=== PATIENT | male | born 1985 | race Caucasian/White ===

== ENCOUNTER 2017-05-02 20:23 | Inpatient (IN) | payer OTHER ==
--- NOTE | 2017-05-02 20:45 | ED ---
Psych HPI - General Source: patient Mode of arrival: EMS <Maurice Carias - Last Filed: 05/02/17 20:42> <Todd Mckeon - Last Filed: 05/02/17 23:32> - General Chief Complaint: Psychiatric Symptoms Stated Complaint: mental health Time Seen by Provider: 05/02/17 20:35 - History of Present Illness Initial Comments: This 31-year-old white male presents with a complaint of depression. He states that he has had multiple life stressors recently. He went through a separation and then was having chcf problems regarding this 3-year-old. He also was fired from his job. He denies any suicidal ideations. He states that he was started on an SSRI type of medication and he thinks that this caused most of his symptoms. He's been having some auditory hallucinations but no visual hallucinations. He states that there is a poison his brain that is telling him to do the opposite of what he wants to do. He states that over symptoms started her on January 2017 knees been hospitalized multiple times since then primarily in [place]. He has never been to our hospital previously. He denies any medical issues currently. He denies any drugs or alcohol other than marijuana. No other complaints or modifying factors. (Maurice Carias) Review of Systems ROS Other: All systems not noted in ROS Statement are negative. <Maurice Carias - Last Filed: 05/02/17 20:42> ROS Other: All systems not noted in ROS Statement are negative. <Todd Mckeon - Last Filed: 05/02/17 23:32> ROS Statement: Those systems with pertinent positive or pertinent negative responses have been documented in the HPI. Past Medical History Past Medical History: Seizure Disorder Additional Past Medical History / Comment(s): seizures from medication History of Any Multi-Drug Resistant Organisms: None Reported Past Surgical History: No Surgical Hx Reported Past Psychological History: Anxiety, Depression Smoking Status: Current every day smoker Past Alcohol Use History: Occasional Past Drug Use History: Marijuana <Maurice Carias - Last Filed: 05/02/17 20:42> General Exam <Maurice Carias - Last Filed: 05/02/17 20:42> <Todd Mckeon - Last Filed: 05/02/17 23:32> - General Exam Comments Initial Comments: GENERAL: The patient is well nourished and well hydrated. VITAL SIGNS: Heart rate, blood pressure, respiratory rate reviewed as recorded in nurse's notes. EYES: Pupils are round and reactive. Extraocular movements are intact. No conjunctival / lid redness or swelling. ENT: No external evidence of injury, swelling, or ecchymosis. Airway is patent. Throat is clear. NECK: Nontender. No swelling or evidence of injury. No subcutaneous emphysema. Trachea is midline. No thyroid mass. HEART: Regular rate and rhythm. Good peripheral pulses. LUNGS/CHEST: Breath sounds clear and equal bilaterally. No rales, rhonchi, or wheezes. No ecchymosis, subcutaneous emphysema, or tenderness. ABDOMEN: Abdomen soft without tenderness. No palpable masses or organomegaly. No peritoneal signs. No abdominal wall swelling or ecchymosis. EXTREMITIES: No extremity tenderness. Normal muscle tone and function. No thoracolumbar tenderness. NEUROLOGIC: Sensation is grossly intact. Cranial nerve exam reveals face is symmetrical, tongue is midline, speech is clear. SKIN: No abrasions or ecchymosis is noted. No induration or masses noted. PSYCHIATRIC: Alert and oriented. Appears very tearful at times but is quite verbose. (Maurice Carias) Medical Decision Making <Maurice Carias - Last Filed: 05/02/17 20:42> <Todd Mckeon - Last Filed: 05/02/17 23:32> - Medical Decision Making The patient was seen and examined. A urine drug test is ordered. The breath alcohol test is negative. It is felt as though he is cleared from a medical standpoint for further psychiatric evaluation. (Maurice Carias) Patient reevaluated by myself, Dr. Mckeon. Patient does admit to being depressed however denies suicidal ideation. Petition has concerns for suicidal threats and attempt. Patient admits to not taking his medication. 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 Patient then admits that he has been in and out of hospitals multiple times recently and none of the medications seemed to help him. Patient does admit to hearing voices and states that is a female voice that is the voice of doubt telling him that he is frequently doing things wrong. Patient was seen by mental health services, who will admit. Positive clinical certificate completed. (Todd Mckeon) - Lab Data Lab Results 05/02/17 Range/Units 20:45 Urine Opiates Screen Not Detected (NotDetected) Ur Oxycodone Screen Not Detected (NotDetected) Urine Methadone Screen Not Detected (NotDetected) Ur Propoxyphene Screen Not Detected (NotDetected) Ur Barbiturates Screen Not Detected (NotDetected) U Tricyclic Antidepress Not Detected (NotDetected) Ur Phencyclidine Scrn Not Detected (NotDetected) Ur Amphetamines Screen Not Detected (NotDetected) U Methamphetamines Scrn Not Detected (NotDetected) U Benzodiazepines Scrn Not Detected (NotDetected) Urine Cocaine Screen Not Detected (NotDetected) U Marijuana (THC) Screen Detected H (NotDetected) Disposition <Maurice Carias - Last Filed: 05/02/17 20:42> Decision Time: 23:32 <Todd Mckeon - Last Filed: 05/02/17 23:32> Clinical Impression: Depression, Auditory hallucinations Disposition: ADMITTED IP TO THIS HOSP
[2017-05-02] MEDS ORDERED: NICOTINE 21MG/24HR PATCH TRANSDERM STA (21:12)
[2017-05-02] MEDS ORDERED: LORazepam 1 MG TAB PO PRN (23:38)
[2017-05-02] MEDS ORDERED: ZIPRASIDONE 20 MG VIAL IM PRN (23:38)
[2017-05-02] MEDS ORDERED: ACETAMINOPHEN TAB 325 MG TAB PO PRN (23:38)
[2017-05-02] MEDS ORDERED: MAG HYDROX/AL HYDROX/SIMETH 30 ML CUP PO PRN (23:38)
[2017-05-02] MEDS ORDERED: MAGNESIUM HYDROXIDE 2,400 MG/10 ML CUP PO PRN (23:38)
[2017-05-02] MEDS ORDERED: LORazepam 2 MG/ML SYRINGE IM PRN (23:45)
[2017-05-03 00:52] LABS: Appearance,Urine Clear (Clear); Bilirubin,Urine Negative (Negative); Glucose,Urine (UA) Negative (Negative); Ketones,Urine Negative (Negative); Leukocyte Esterase,Urine Negative (Negative); Nitrite,Urine Negative (Negative); Protein,Urine Negative (Negative); Specific Gravity,Urine 1.016 (1.001-1.035); UA Billing (MACRO vs. MICRO) CHEM; Urobilinogen,Urine <2.0 mg/dL (<2.0)
[2017-05-03 01:08] VITALS: BMI 27.6
--- NOTE | 2017-05-03 07:18 | P.MDCNMH ---
History of Present Illness H&P Date: 05/03/17 Chief Complaint: medical management 31 year old male with no significant past medical history , he has recently been ggoing through a divorce and has been fired from his job which has created alot of anxiety and depression. This has started January 2017 , for which he was hospitalized multiple times mainly in [place]. He is currently visiting here at [place] because he is visiting his sick mother. He is not sure why he is in the hospital now, and reports that police has brought him, and was told it was because he was becoming disturbing to others,. when further asked he denies any aggressive behaviors and reported that he was facetiming with his son over the phone [place] and did not go over any further details. He becomes tangential in his thoughts talking about social security benefits, employment benefits, and filing a law suit against doctors who started him on SSRI due to the side effects he experienced which made him stop the medication 6 weeks ago (he listed headache, ED, generalized weakness, insomnia, and hearing inner voices that is threatening to his family). He admits to suicidal thoughts but reports that he does not want to . He is currently concerned regarding some deadlines that he needs to electronically file some forms inorder to get his benefits. Review of Systems Constitutional: Patient reports no fever, no chills, no night sweating, no significant weight changes Eyes: Patient reports no visual changes, no eye pain ENT: Patient reports no ear pain, no rhinorrhea, no sore throat Cardiovascular: Patient reports no chest pain, no exertional dyspnea, no peripheral leg edema, no orthopnea, no paroxysmal nocturnal dyspnea Respiratory:Patient reports no cough, no wheezing, no shortness of breath Gastrointestinal: Patient reports no diarrhea, no constipation, no nausea no vomiting, no abdominal pain Genitourinary: Patient reports no dysuria, no hematuria, no changes in urinary habits, no genital lesions Musculoskeletal: Patient reports no muscle pain, no joint pain Psychiatric: Patient reports depression, suicidal ideation , hearing voices, anxiety Endocrine: Patient reports no heat intolerance, no cold intolerance, no excessive thirst, no polyuria Neurological: Patient reports no focal neurologic deficits, no weakness, no numbness, no tingling Hem/Lymphatic: Patient reports no bleeding tendency, no bruising, no swollen lymph glands Allergic/Immun: Patient reports no recent allergic reactions Skin: Patient reports no rashes, no pruritis, no ulcers Past Medical History Past Medical History: Seizure Disorder Additional Past Medical History / Comment(s): seizures from medication History of Any Multi-Drug Resistant Organisms: None Reported Past Surgical History: No Surgical Hx Reported Additional Past Surgical History / Comment(s): surgery when he was 4 years old removall of knee cap cyst Past Anesthesia/Blood Transfusion Reactions: Unable to Obtain Past Psychological History: Anxiety, Depression Smoking Status: Current every day smoker Past Alcohol Use History: Occasional Past Drug Use History: Marijuana - Past Family History Father Additional Family Medical History / Comment(s): CAD at age 60 Mother Additional Family Medical History / Comment(s): colon cancer Medications and Allergies Home Medications and Allergies Comment(s): none currently Home Medications Medication Instructions Recorded Confirmed Type No Known Home Medications [No 05/02/17 05/02/17 History Known Home Medications] Allergies Allergy/AdvReac Type Severity Reaction Status Date / Time ibuprofen Allergy Rash/Hives Verified 05/02/17 20:54 pseudoephedrine Allergy Rash/Hives Verified 05/02/17 20:54 [From Sudafed] alprazolam [From Xanax] AdvReac Confusion Verified 05/02/17 20:54 clonazepam [From Klonopin] AdvReac shaking Verified 05/02/17 20:54 escitalopram AdvReac seizures,insomnia, Verified 05/02/17 20:54 hallucinations Physical Exam Vitals: Vital Signs Temp Pulse Pulse Resp BP BP Pulse Ox 05/03/17 01:01 97.9 F 73 16 123/51 98 05/03/17 00:41 97.9 F 73 16 123/51 98 05/02/17 20:27 87 18 162/94 100 Intake and Output 05/02/17 05/03/17 05/03/17 22:59 06:59 14:59 Other: Weight 79.379 kg 82.4 kg Constitutional: No acute distress, conversant, pleasant Eyes: Anicteric sclerae, moist conjunctiva, no lid-lag Pupils equal round reactive to light ENMT: NC/AT Oropharynx clear, no erythema, exudates Neck: Supple, FROM, no masses, or JVD No carotid bruits No thyromegaly Lungs: Clear to auscultation Clear to percussion Normal respiratory effort, no accessory muscle use Cardiovascular: Heart regular in rate and rhythm, No murmurs, gallops, or rubs No peripheral edema Abdominal: Soft Nontender, no guarding, rebound or rigidity Abdomen moving with respiration Normoactive bowel sounds No hepatomegaly, No splenomegaly No palpable mass No abdominal wall hernia noted Skin: Normal temperature, tone, texture, turgor No induration No subcutaneous nodules No rash, lesions No ulcers Extremities: No digital cyanosis No clubbing Pedal pulses intact and symmetrical Radial pulses intact and symmetrical No calf tenderness Psychiatric: Alert and oriented to person, place and time Flat affect Poor judgement Neuro Muscles Strength 5/5 in all 4 extremities Sensation to light touch grossly present throughout No focal sensory deficits Lymphatics: no palpable cervical or supraclavicular , or inguinal lymph nodes Cranial Nerve Examination - Cranial Nerves Cranial Nerve II- Optic: Intact Cranial Nerve III- Oculomotor: Intact Cranial Nerve IV- Trochlear: Intact Cranial Nerve V- Trigeminal: Intact Cranial Nerve - Abducens: Intact Cranial Nerve VII- Facial: Intact Cranial Nerve VIII- Auditory: Intact Cranial Nerve IX- Glossopharyngeal: Intact Cranial Nerve X- Vagus: Intact Cranial Nerve XI- Accessory: Intact Cranial Nerve XII- Hypoglossal: Intact Results Labs: Abnormal Lab Results - Last 24 Hours (Table) 05/02/17 Range/Units 20:45 U Marijuana (THC) Screen Detected H (NotDetected) Assessment and Plan (1) Tobacco dependence Status: Acute (2) Auditory hallucinations Status: Acute (3) Depression Status: Acute Plan: patient counseled to quit smoking NRT offered depression and suicidal ideation management will be deferred to psych DVT PPX ambulatory and low risk
[2017-05-03 08:08] LABS: Basophils # (A) 0.1 k/uL (0-0.2); Basophils % (A) 1 %; CH 31.3; CHCM 34.5; Eosinophils # (A) 0.6 k/uL (0-0.7); Eosinophils % (A) 6 %; HCT 47.1 % (39.0-53.0); HDW 2.43; HGB 16.2 gm/dL (13.0-17.5); Luc # (Auto) 0.29; Luc % (Auto) 3; Lymphocytes # (A) 4.1 k/uL (1.0-4.8); Lymphocytes % (A) 42 %; MCH 31.3 pg (25.0-35.0); MCHC 34.4 g/dL (31.0-37.0); MCV 91.1 fL (80.0-100.0); Mean Platelet Volume 6.7; Monocytes # (A) 0.6 k/uL (0-1.0); Monocytes % (A) 6 %; Neutrophils # (A) 4.1 k/uL (1.3-7.7); Neutrophils % (A) 42 %; RBC 5.17 m/uL (4.30-5.90); WBC 9.7 k/uL (3.8-10.6); WBC (Perox) 9.36
[2017-05-03 08:26] LABS: ALT 53 U/L (21-72); AST 29 U/L (17-59); Alkaline Phosphatase 89 U/L (38-126); Anion Gap 11 mmol/L; Blood Urea Nitrogen 14 mg/dL (9-20); Calcium 9.7 mg/dL (8.4-10.2); Carbon Dioxide 23 mmol/L (22-30); Chloride 106 mmol/L (98-107); Glucose 87 mg/dL (74-99); Non-African American GFR(MDRD) >60 (>60 ml/min/1.73 sqM); Potassium 4.2 mmol/L (3.5-5.1); Sodium 140 mmol/L (137-145); Total Bilirubin 0.7 mg/dL (0.2-1.3); Total Protein 7.2 g/dL (6.3-8.2)
[2017-05-03] MEDS: NICOTINE 21MG/24HR PATCH TRANSDERM SCH (08:41)
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
[2017-05-03] MEDS ORDERED: WATER FOR INJECTION, STERILE 10 ML IV ONE (13:16)
[2017-05-03] MEDS ORDERED: ZIPRASIDONE 20 MG VIAL IM ONE (13:17)
[2017-05-04] MEDS: NICOTINE 21MG/24HR PATCH TRANSDERM SCH (08:07)
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
[2017-05-05 06:35] VITALS: BP 95/51; PULSE 67; RESP 16; TEMP 97.7
[2017-05-05] MEDS: NICOTINE 21MG/24HR PATCH TRANSDERM SCH (08:11)
== END 2017-05-05 14:45 | disposition home or self-care (01) | DRG 885 ==
LOC: EC 20:23 → 3MHU 23:21
PROVIDERS: ADMIT Psychiatry & Neurology Psychiatry; ATTEND Psychiatry & Neurology Psychiatry
DX: F31.2 Bipolar disorder, current episode manic severe with psychotic features (principal); F41.9 Anxiety disorder, unspecified; F41.0 Panic disorder [episodic paroxysmal anxiety]; F17.200 Nicotine dependence, unspecified, uncomplicated; F12.90 Cannabis use, unspecified, uncomplicated; Z88.6 Allergy status to analgesic agent; Z88.8 Allergy status to other drugs, medicaments and biological substances
CPT/HCPCS: 80053; 80306; 81003; 82075; 84443; 85025; 99285

== ENCOUNTER 2017-05-06 19:39 | Inpatient (IN) | payer OTHER ==
[2017-05-06] MEDS ORDERED: NICOTINE 21MG/24HR PATCH TRANSDERM STA (20:43)
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
[2017-05-07 01:25] LABS: Basophils # (A) 0.1 k/uL (0-0.2); Basophils % (A) 1 %; CH 32.5; Eosinophils # (A) 0.4 k/uL (0-0.7); Eosinophils % (A) 5 %; HCT 45.5 % (39.0-53.0); HDW 2.36; HGB 16.1 gm/dL (13.0-17.5); Luc # (Auto) 0.18; Luc % (Auto) 2; Lymphocytes % (A) 50 %; MCH 32.1 pg (25.0-35.0); MCHC 35.4 g/dL (31.0-37.0); MCV 90.6 fL (80.0-100.0); Mean Platelet Volume 7.6; Monocytes # (A) 0.5 k/uL (0-1.0); Monocytes % (A) 7 %; Neutrophils # (A) 2.8 k/uL (1.3-7.7); Neutrophils % (A) 35 %; RBC 5.02 m/uL (4.30-5.90); RDW 12.7 % (11.5-15.5); WBC 7.9 k/uL (3.8-10.6)
[2017-05-07 01:34] LABS: Anion Gap 10 mmol/L; Blood Urea Nitrogen 14 mg/dL (9-20); Calcium 9.4 mg/dL (8.4-10.2); Carbon Dioxide 23 mmol/L (22-30); Chloride 106 mmol/L (98-107); Glucose 79 mg/dL (74-99); Non-African American GFR(MDRD) >60 (>60 ml/min/1.73 sqM); Potassium 4.1 mmol/L (3.5-5.1); Sodium 139 mmol/L (137-145)
[2017-05-07] MEDS ORDERED: MAG HYDROX/AL HYDROX/SIMETH 30 ML CUP PO PRN (05:32)
[2017-05-07] MEDS ORDERED: ZIPRASIDONE 20 MG VIAL IM PRN (05:32)
[2017-05-07] MEDS ORDERED: MAGNESIUM HYDROXIDE 2,400 MG/10 ML CUP PO PRN (05:32)
[2017-05-07] MEDS ORDERED: ACETAMINOPHEN TAB 325 MG TAB PO PRN (05:32)
[2017-05-07 07:28] VITALS: BMI 27.9
[2017-05-07] MEDS: NICOTINE 14MG/24HR PATCH TRANSDERM SCH (08:11)
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
[2017-05-08] MEDS: NICOTINE 14MG/24HR PATCH TRANSDERM SCH (08:01)
--- NOTE | 2017-05-08 17:48 | P.HPMEDMHU ---
History of Present Illness H&P Date: 05/08/17 Chief Complaint: Suicidal ideation Patient is a 31-year-old male with past medical history of anxiety, depression, and an undescended left testicle who presented secondary to petition and certification for possible suicidal ideation. He has been refusing to take medications as he has had side effects from them as per psychiatry's notes. He is very irritable about being in the mental health unit. He has been very upset and concerned about his mother and her diagnosis of colon cancer. He states that he has been having intermittent left testicular pain since December. He reports that he has had a thorough evaluation including ultrasound and laboratory analysis. They have ruled out Chlamydia in the past. He is not concerned with this at this time. He also reports some right ear pain that is intermittent. It is associated with a runny nose. He denies any fevers, chills , or cough. He has no other complaints currently. He states that he has a chronic runny nose after having used cocaine. He reports being cocaine free for the last 4 years. Review of Systems General: no fever/chills, no rigors, no weight loss/weight gain, no change in appetite Eyes: No double vision, no unusual blurry vision, no loss of vision ENT: + rhinorrhea, No congestion, no trush, right ear pain Cardiovascular: No chest pain, no palpitations, no syncope, no edema, No paroxysmal nocturnal dyspnea, No dizziness Pulmonary: No shortness of breath, no wheezing, no cough, hemoptysis Abdominal: No abdominal pain, no constipation, no diarrhea, no vomiting, no nausea, no distention Genitourinary: No dysuria, no urinary frequency, no hematuria, no unusual discharge/odor, + intermittent left testicular pain Neuro: No unusual paresthesias, no unusual paresis/paralysis, no headache Dermatologic: No unusual rashes, no unusual lesions, no unusual changes in nails Endocrinology: No intolerance to heat/cold, no excessive thirst,] no unusual fatigue Hematologic: No unusual bruising or bleeding, no unusual cervical lymphadenopathy Psychiatric: No changes in mood or behaviors, no changes in sleep pattern Past Medical History Past Medical History: Seizure Disorder Additional Past Medical History / Comment(s): seizures from medication- patient reported this as last admission, he now states that he went to the ER to be evaluated for this and he told him he had no signs of seizures. 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 History of Any Multi-Drug Resistant Organisms: None Reported Additional Past Surgical History / Comment(s): surgery when he was 4 years old removall of knee cap cyst Past Anesthesia/Blood Transfusion Reactions: Unable to Obtain Past Psychological History: Anxiety, Depression Smoking Status: Current every day smoker Past Alcohol Use History: Occasional Past Drug Use History: Cocaine, Marijuana - Past Family History Father Additional Family Medical History / Comment(s): Valvular heart disease, diabetes mellitus type 2, and neuropathy Mother Additional Family Medical History / Comment(s): colon cancer Medications and Allergies Home Medications Medication Instructions Recorded Confirmed Type No Known Home Medications [No 05/02/17 05/07/17 History Known Home Medications] Allergies Allergy/AdvReac Type Severity Reaction Status Date / Time ibuprofen Allergy Rash/Hives Verified 05/07/17 05:54 pseudoephedrine Allergy Rash/Hives Verified 05/07/17 05:54 [From Sudafed] alprazolam [From Xanax] AdvReac Confusion Verified 05/07/17 05:54 clonazepam [From Klonopin] AdvReac shaking Verified 05/07/17 05:54 escitalopram AdvReac seizures,insomnia, Verified 05/07/17 05:54 hallucinations Physical Exam Osteopathic Statement: *. No significant issues noted on an osteopathic structural exam other than those noted in the History and Physical/Consult. Vitals: Vital Signs Temp Pulse Resp BP 05/08/17 07:00 97.9 F 71 18 132/75 General: non toxic, no distress, appears at stated age, normal weight Derm: no rashes, no lesions, no ulcers, no unusual ecchymoses Head: atraumatic, normocephalic, symmetric Eyes: EOMI, no lid lag, anicteric sclera, pupils equal round reactive to light ENT: + post nasal drip, no thrush , nearest patent, + pharyngeal erythema, bulging right tympanic membrane without erythema or loss of light. Neck: No thyromegaly, no cervical lymphadenopathy, trachea midline, supple Mouth: no lip lesion, mucus membranes moist Cardiovascular: S1S2 reg, no murmur, positive posterior tibial pulse bilateral, no edema , no JVD, no clubbing, no cyanosis, capillary refill less than 2 seconds Lungs: CTA bilateral, no rhonchi, no rales , no accessory muscle use Abdominal: soft, nontender to palpation, no guarding, no appreciable organomegaly, normal bowel sounds Ext: no gross muscle atrophy, no contractures, Neuro: CN II-XI grossly intact, light touch intact all 4 extremities, Psych: Alert, oriented, anxious Cranial Nerve Examination - Cranial Nerves Cranial Nerve II- Optic: Intact Cranial Nerve III- Oculomotor: Intact Cranial Nerve IV- Trochlear: Intact Cranial Nerve V- Trigeminal: Intact Cranial Nerve - Abducens: Intact Cranial Nerve VII- Facial: Intact Cranial Nerve VIII- Auditory: Intact Cranial Nerve IX- Glossopharyngeal: Intact Cranial Nerve X- Vagus: Intact Cranial Nerve XI- Accessory: Intact Cranial Nerve XII- Hypoglossal: Intact Results CBC & Chem 7: 05/07/17 01:16 05/07/17 01:16 Assessment and Plan Plan: #Acute rhinitis -Offered patient claritin and/or Flonase. He deferred per's to be a natural past day and drink tea when he goes home. There is no eminent danger or concerns for worsening of this condition. If left alone it should self resolve. #Left testicular pain -Continue to follow-up with urology as an outpatient if this recurs. He is at risk for testicular cancer with having an undescended testicle. Again this can be done on an outpatient basis. #Possible suicidal ideation -Your psych management # Tobacco abuse - cessation - nicotine replacement. Thank you for allowing us to participate in the care of this patient. We will follow peripherally. Do not hesitate to contact us with questions. Someone can be reached from the [facility] hospitalist group at all hours of the day at [phone].
--- NOTE | 2017-05-08 20:34 | P.PN ---
Subjective Principal diagnosis: Adjustment disorder with disturbance of emotions and conduct Patient reported that he is quite upset that someone was reportedly contacting regarding his inpatient hospitalization whom he had not signed a JEFFREY. After multiple discussions, patient was calmed and this was tabled until tomorrow when it could be discussed with patient when additional information could be gathered to help clarify the situation. Patient remains somewhat irascible on the unit at times but continues display no overt signs of eduar or psychosis. Patient denies any intent to harm self or others, he states today that he will consider signing for deferral of court hearing if a reasonable treatment plan can be reached. To date, patient patient has not emergency medication. Objective - Vital Signs Vital signs: Vital Signs Temp 97.9 F 05/08/17 07:00 Pulse 71 05/08/17 07:00 Resp 18 05/08/17 07:00 BP 132/75 05/08/17 07:00 Pulse Ox 100 05/07/17 07:21 - Labs CBC & Chem 7: 05/07/17 01:16 05/07/17 01:16 Assessment and Plan (1) Adjustment disorder with mixed disturbance of emotions and conduct Status: Acute Plan: 1. Additional collateral needed to develop disposition 2. Family meeting needed to establish safe discharge plan 3. Patient has signed JEFFREY's for multiple others for said collateral to be obtained 4. Continue hospitalization until a safe discharge plan can be established
[2017-05-09 06:57] VITALS: BP 114/58; PULSE 61; RESP 16; TEMP 97.6
[2017-05-09] MEDS ORDERED: NICOTINE 7MG/24HR PATCH TRANSDERM SCH (09:00)
== END 2017-05-09 18:24 | disposition home or self-care (01) | DRG 882 ==
LOC: EC 19:39 → 3MHU 05-07 05:17
PROVIDERS: ADMIT Psychiatry & Neurology Psychiatry; ATTEND Psychiatry & Neurology Psychiatry
DX: F43.25 Adjustment disorder with mixed disturbance of emotions and conduct (principal); R45.851 Suicidal ideations; G40.909 Epilepsy, unspecified, not intractable, without status epilepticus; F17.200 Nicotine dependence, unspecified, uncomplicated; F32.9 Major depressive disorder, single episode, unspecified; F41.9 Anxiety disorder, unspecified; F12.90 Cannabis use, unspecified, uncomplicated; Z88.6 Allergy status to analgesic agent; Z88.8 Allergy status to other drugs, medicaments and biological substances; Z82.49 Family history of ischemic heart disease and other diseases of the circulatory system
CPT/HCPCS: 36415; 80048; 80306; 82075; 85025; 99285

== ENCOUNTER 2017-08-15 12:40 | Emergency (ER) | payer SELFPAY ==
[2017-08-15] MEDS ORDERED: DIPH,PERTUS(ACELL)TETVAC-LF 0.5 ML VIAL IM ONE (12:56)
--- NOTE | 2017-08-16 07:20 | XR ---
EXAMINATION TYPE: TEMPORARY DATE OF EXAM: 08/15/2017 COMPARISON: NONE HISTORY: Chainsaw injury with pain and laceration TECHNIQUE: Two views are submitted. FINDINGS: The osseous structures are intact. The joint spaces are preserved and there is no acute fracture or dislocation. Soft tissue laceration noted. No metallic foreign body. Olecranon spur noted. IMPRESSION: 1. No definite acute fracture or dislocation if symptoms persist, follow-up study in 7 to 10 days wo uld be suggested. 2. Soft tissue injury with laceration.
== END 2017-08-15 14:42 | disposition home or self-care (01) ==
LOC: EC 12:40
DX: S51.812A Laceration without foreign body of left forearm, initial encounter (principal); F17.200 Nicotine dependence, unspecified, uncomplicated; W45.8XXA Other foreign body or object entering through skin, initial encounter; Y92.009 Unspecified place in unspecified non-institutional (private) residence as the place of occurrence of the external cause
CPT/HCPCS: 12002; 90715; 99283

== ENCOUNTER 2021-06-12 15:57 | Inpatient (IN) | payer OTHER ==
[2021-06-12 17:13] LABS: Appearance,Urine Clear (Clear); Bilirubin,Urine Negative (Negative); Blood,Urine Negative (Negative); Color,Urine Yellow; Glucose,Urine (UA) Negative (Negative); Ketones,Urine Negative (Negative); Leukocyte Esterase,Urine Negative (Negative); Nitrite,Urine Negative (Negative); Protein,Urine Negative (Negative); Specific Gravity,Urine 1.022 (1.001-1.035); Urobilinogen,Urine <2.0 mg/dL (<2.0)
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
[2021-06-12 17:34] LABS: Amphetamine Screen,Urine Not Detected (NotDetected); Barbiturate Screen,Urine Not Detected (NotDetected); Benzodiazepines Screen,Urine Not Detected (NotDetected); Cocaine Screen,Urine Not Detected (NotDetected); Methadone Screen, Urine Not Detected (NotDetected); Opiate Screen,Urine Not Detected (NotDetected); Oxycodone Screen, Urine Not Detected (NotDetected); Phencyclidine Screen,Urine Not Detected (NotDetected); Tricyclic Antidepressant,Urine Not Detected (NotDetected); Urn Cannabinoid Scrn Detected (NotDetected)
[2021-06-12] MEDS ORDERED: ACETAMINOPHEN TAB 325 MG TAB PO PRN (19:53)
[2021-06-12] MEDS ORDERED: MAG HYDROX/AL HYDROX/SIMETH 30 ML CUP PO PRN (19:53)
[2021-06-12] MEDS ORDERED: MAGNESIUM HYDROXIDE 2,400 MG/10 ML CUP PO PRN (19:53)
[2021-06-12] MEDS ORDERED: haloperidoL 5 MG TAB PO PRN (20:02)
[2021-06-12] MEDS ORDERED: HALOPERIDOL LACTATE 5 MG/ML 1 ML VIAL IM PRN (20:02)
[2021-06-12] MEDS ORDERED: hydrOXYzine pamoate 25 MG CAP PO PRN (20:02)
[2021-06-12] MEDS ORDERED: hydrOXYzine HCL 50 MG/ML 1 ML VIAL IM PRN (20:02)
--- NOTE | 2021-06-12 22:49 | P.PN ---
Progress Note - Text Progress Note Date: 06/12/21 Patient actively psychotic and could not be evaluated. Will attempt again tomorrow.
[2021-06-13 07:35] LABS: Basophils # (A) 0.1 k/uL (0-0.2); Basophils % (A) 1 %; Eosinophils # (A) 0.3 k/uL (0-0.7); Eosinophils % (A) 3 %; HCT 43.9 % (39.0-53.0); HGB 14.9 gm/dL (13.0-17.5); Lymphocytes # (A) 3.1 k/uL (1.0-4.8); Lymphocytes % (A) 41 %; MCH 32.1 pg (25.0-35.0); MCHC 33.9 g/dL (31.0-37.0); MCV 94.6 fL (80.0-100.0); Monocytes # (A) 0.5 k/uL (0-1.0); Monocytes % (A) 6 %; Neutrophils # (A) 3.5 k/uL (1.3-7.7); Neutrophils % (A) 45 %; Platelet Count 296 k/uL (150-450); RBC 4.65 m/uL (4.30-5.90); WBC 7.6 k/uL (3.8-10.6)
[2021-06-13 07:47] LABS: ALT 26 U/L (4-49); AST 29 U/L (17-59); African American GFR (CKD) >90 (>60 ml/min/1.73 sqM); Albumin 4.4 g/dL (3.5-5.0); Alkaline Phosphatase 77 U/L (38-126); Anion Gap 5 mmol/L; Blood Urea Nitrogen 16 mg/dL (9-20); Calcium 10.1 mg/dL (8.4-10.2); Carbon Dioxide 30 mmol/L (22-30); Chloride 104 mmol/L (98-107); Glucose 103 mg/dL (74-99); Non-African American GFR(CKD) >90 (>60 ml/min/1.73 sqM); Potassium 4.7 mmol/L (3.5-5.1); Sodium 139 mmol/L (137-145); Total Bilirubin 0.8 mg/dL (0.2-1.3); Total Protein 7.4 g/dL (6.3-8.2)
[2021-06-13] MEDS: NICOTINE 14MG/24HR PATCH TRANSDERM SCH (08:28)
[2021-06-13 12:03] LABS: Chol/HDL Ratio 4.44 Ratio; LDL Cholesterol,Calculated 149.5 mg/dL (0.0-131.0)
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
[2021-06-13] MEDS: haloperidoL 5 MG TAB PO SCH (20:35)
--- NOTE | 2021-06-13 22:08 | P.CONS ---
History of Present Illness - Reason for Consult Consult date: 06/13/21 - History of Present Illness Patient is a 35-year-old male with a PMH of marijuana abuse, tobacco abuse, who was brought into the emergency room under police custody due to erratic behavior. The patient was admitted with mental health unit where he was seen and evaluated. He continued to display paranoid behavior throughout the interview. He reported that he received 100s of threats yesterday via strange telephone numbers. He however denied any physical complaints. He denied being in any medications at home. He denied chest discomfort, shortness of breath, fever, chills. Also denied cough, nausea, vomiting, abdominal pain, diarrhea. He reports using recreational marijuana but denied using tobacco. D enied illicit substance use. Review of systems: Pertinent positives and negatives as discussed in HPI, a complete review of systems was performed and all other systems are negative. Physical examination: General: non toxic, no distress, appears at stated age, normal weight Derm: no unusual rashes/lesions no unusual ecchymoses, warm, dry Head: atraumatic, normocephalic, symmetric Eyes: EOMI, no lid lag, anicteric sclera, pupils equal round reactive to light ENT: Nose and ears atraumatic, no thrush, no pharyngeal erythema Neck: No thyromegaly, no cervical lymphadenopathy, trachea midline, supple Mouth: no lip lesion, mucus membranes moist Cardiovascular: S1S2 reg, no murmur, positive posterior tibial pulse bilateral, no edema, capillary refill less than 2 seconds Lungs: CTA bilateral, no rhonchi, no rales , no accessory muscle use Abdominal: soft, nontender to palpation, no guarding, no appreciable organomegaly, normal bowel sounds Ext: no gross muscle atrophy, muscle strength 5 out of 5 in all 4 extremities grossly, no contractures, Neuro: CN II-XI grossly intact, light touch intact all 4 extremities, finger to nose within normal limits, Psych: Alert, oriented, appropriate affect Assessment/plan Marijuana abuse -Advised on importance of cessation Psychosis -As per psychiatry Thank you for allowing us to participate in the care of this patient. We will follow peripherally. Do not hesitate to contact us with questions. Someone can be reached from the [facility] hospitalist group at all hours of the day at [phone]. Past Medical History Past Medical History: Seizure Disorder Additional Past Medical History / Comment(s): seizures from medication- patient reported this as last admission, he now states that he went to the ER to be evaluated for this and he told him he had no signs of seizures. 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 History of Any Multi-Drug Resistant Organisms: None Reported Past Surgical History: No Surgical Hx Reported Additional Past Surgical History / Comment(s): surgery when he was 4 years old removall of knee cap cyst Past Anesthesia/Blood Transfusion Reactions: Unable to Obtain Past Psychological History: Anxiety, Depression Smoking Status: Light tobacco smoker Past Alcohol Use History: Occasional Past Drug Use History: Cocaine, Marijuana - Past Family History Father Additional Family Medical History / Comment(s): Valvular heart disease, diabetes mellitus type 2, and neuropathy Mother Additional Family Medical History / Comment(s): colon cancer Medications and Allergies Home Medications Medication Instructions Recorded Confirmed Type No Known Home Medications 06/12/21 06/12/21 History Allergies Allergy/AdvReac Type Severity Reaction Status Date / Time ibuprofen Allergy Rash/Hives Verified 06/12/21 17:19 pseudoephedrine Allergy Rash/Hives Verified 06/12/21 17:19 [From Sudafed] alprazolam [From Xanax] AdvReac Confusion Verified 06/12/21 17:19 clonazepam [From Klonopin] AdvReac shaking Verified 06/12/21 17:19 escitalopram AdvReac seizures,insomnia, Verified 06/12/21 17:19 hallucinations Physical Exam Vitals: Vital Signs Temp Pulse Resp BP 06/13/21 05:50 97.9 F 52 L 14 100/56 Results CBC & Chem 7: 06/13/21 07:05 06/13/21 07:05 Labs: Abnormal Lab Results - Last 24 Hours (Table) 06/13/21 Range/Units 07:05 Glucose 103 H (74-99) mg/dL Cholesterol 227.00 H (0.00-200.00) mg/dL LDL Cholesterol, Calc 149.5 H (0.0-131.0) mg/dL
[2021-06-14] MEDS: NICOTINE 14MG/24HR PATCH TRANSDERM SCH (07:54)
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
[2021-06-14] MEDS: haloperidoL 5 MG TAB PO SCH (20:55)
[2021-06-15] MEDS ORDERED: haloperidoL 1 MG TAB PO SCH (09:00)
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
[2021-06-15] MEDS: haloperidoL 5 MG TAB PO SCH (21:59)
[2021-06-16] MEDS: haloperidoL 5 MG TAB PO SCH ×2 (09:16→21:14)
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
[2021-06-17] MEDS: haloperidoL 5 MG TAB PO SCH ×2 (08:34→20:21)
--- NOTE | 2021-06-17 17:53 | PN ---
PROGRESS NOTE DATE OF SERVICE: 06/17/2021. CHIEF COMPLAINT: The patient was brought to the hospital under petition by police. He has apparently had long-term issues with psychosis and persistent delusions. INTERVAL HISTORY: Patient has been in the same state of mind and mood. He had a quiet day yesterday. He comes out on the unit. He attended all groups yesterday. It is noted in one group he acknowledged that he has not been very productive of late in his life. He noted that he used to work excessively, and now mostly what he does is smoke cigarettes and does very little. He has poor motivation. He slept fairly well last night. Today he has been up. He has attended most of the groups today. He seemed to be a little withdrawn in the groups compared to yesterday. He had no complaints or concerns when I talked to him. When we when we first met he immediately said that he is in communication with his trade mark attorney and anticipates having a formal meeting either Friday at the earliest or Friday and that he will base any or all of his treatment decision issues on that connection. He is very much opposed to the idea of taking any medications at all. He denied any significant problems or concerns. MENTAL STATUS EXAM: Patient was somewhat restless. He gave fair eye contact. He answered some questions appropriately though tended to defer and would come back to the issue of not needing to address specific treatment issues, as he is waiting to hear from his court-appointed trade mark attorney. His affect was somewhat intense, his mood dysphoric. He seemed somewhat distressed. It was difficult to assess for thought disorder, as he did not really engage much in a conversation to be able to assess that. He indicated no thoughts of harm. He was oriented to his circumstances and surroundings. ASSESSMENT: I will continue the current diagnosis and treatment plan. I will continue the patient on all psychotropic medications based on his choice and relating to his current status from his petition. We will be anticipating either his making a decision in regard to a deferral or a court hearing. We will focus on stabilization and discharge planning. YESSI / BHAVANI: [id number] /
[2021-06-18] MEDS: haloperidoL 5 MG TAB PO SCH ×2 (08:38→20:25)
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
[2021-06-19] MEDS: haloperidoL 5 MG TAB PO SCH ×2 (08:04→23:57)
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
[2021-06-20] MEDS: haloperidoL 5 MG TAB PO SCH ×2 (08:48→20:46)
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
[2021-06-21] MEDS: haloperidoL 5 MG TAB PO SCH ×2 (08:15→21:07)
--- NOTE | 2021-06-21 10:29 | P.PN ---
Progress Note - Text Progress Note Date: 06/21/21 Interval History: Patient was seen in his room and was agreeable to speak with the telegraphic typewriter operator. The patient continues to maintain that the police have been messing with him and accusing him of things that they themselves have done and not him. He continues to be very paranoid towards them. He is currently not reporting any suicidal or homicidal ideation, intention, and/or plan. He is not bringing any auditory visual hallucinations. He is denying any paranoia or other delusions. The patient understands that he has court scheduled on July 02 and is currently requesting to see his press operator apprentice so that he may have his press operator apprentice obtain police records. He is otherwise not reporting any issues regarding his sleep or his appetite. He continues to refuse medications. Mental Status Exam: General Appearance: Patient appears to be stated age is alert, directable and cooperative today. Good hygiene and grooming with long dreadlocked hair. Behavior: Patient displays slightly elevated psychomotor activity. Eye contact is appropriate. Speech: Patient's speech is rapid but with normal volume. Mood/Affect: Patient's mood is "I'm fine." Affect with normal range but suspicious. Suicidality/Homicidality: The patient denies any suicidal or homicidal ideation, intention, and/or plan. Perceptions: The patient denies any overt auditory or visual hallucinations. Though content/process: Patient is endorsing paranoid and bizarre delusions. Thought process is linear but illogical. Memory and concentration: AOX3, grossly intact for the purposes of this session. Concentration is grossly intact. Judgment and insight: Very poor. Vital Signs Temp 97.7 F 06/21/21 06:19 Pulse 58 L 06/21/21 06:19 Resp 14 06/21/21 06:19 BP 116/66 06/21/21 06:19 Pulse Ox 99 06/12/21 20:20 Assessment Schizoaffective disorder, bipolar type Cannabis use disorder Plan: -Patient continues to meet criteria for inpatient psychiatric admission for symptom stabilization and safety. Patient has been petitioned and certified. Demand for court has been filed. -Medications: Continue Haldol 5 mg twice daily. Plan is to transition the patient to Haldol Decanoate. Patient has a right to refuse at this time. We will await a court order. -When necessary Ativan and Haldol for agitation/aggression. -NRT - nicotine patch -SW on board for discharge planning. Encouraged the patient to participate in milieu.
[2021-06-22] MEDS: haloperidoL 5 MG TAB PO SCH ×2 (08:46→20:27)
[2021-06-22 09:28] VITALS: BMI 25.2
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
[2021-06-23] MEDS: haloperidoL 5 MG TAB PO SCH ×2 (08:11→20:08)
--- NOTE | 2021-06-23 16:53 | PN ---
PROGRESS NOTE DATE OF SERVICE: 06/23/2021. CHIEF COMPLAINT: The patient was brought to the hospital under petition by police. He has apparently had long-term issues with psychosis and persistent delusions. INTERVAL HISTORY: The patient had a quiet day yesterday. He comes out on the unit. He will interact with others. He attends groups. It is noted that in one group where he was the only participant he talked about his history of dealing with legal issues and hospitalizations. He talked at length about persecution from police and doctors. He had some sexual preoccupation as well as confucianist preoccupation. He slept fairly well last night. Today he has been up. He continues doing the same. He made a number of statements about believing he has been persecuted. He has been to groups and has been appropriate. He continues to decline medications at this point and is focused on talking to his loss prevention agent in regard to the petition process. MENTAL STATUS EXAM: Patient was somewhat restless. He gave fair eye contact. He answered questions with brief responses. He was spontaneous and talked about issues with the court more than anything else. His affect was somewhat intense, his mood reserved. He seemed somewhat distressed. He continues to voice delusional thinking, particularly regarding paranoid thoughts. He voiced no thoughts of harm. He was oriented and alert. ASSESSMENT: I will continue the current diagnosis and treatment plan. Will continue to engage the patient in individual and group therapeutic activities. He is encouraged to consider taking medications, though that issue is on hold pending a court procedure. We will focus on stabilization and discharge planning. YESSI / BHAVANI: [id number] /
[2021-06-24] MEDS: haloperidoL 5 MG TAB PO SCH ×2 (08:10→21:05)
--- NOTE | 2021-06-24 12:31 | PN ---
PROGRESS NOTE DATE OF SERVICE: 06/24/2021. CHIEF COMPLAINT: The patient was brought to the hospital on a petition by police. He has apparently had long-term issues with psychosis and persistent delusions. INTERVAL HISTORY: Overall things continue the same for the patient. He comes out on the unit. He does interact with others. Generally he is out in the day areas quite a bit of the time. He seems to be fairly energetic. He goes to groups and is appropriate there. He continues to be focused on working with his claim attorney and addressing the petition issue. He said he slept well last night. Today he has been up and out. He reported no problems or concerns. He continues off psychotropic medications. MENTAL STATUS: Patient gave good eye contact. He was somewhat restless. He answered questions with brief responses. His thoughts were clear. His affect was in the reasonable range. He smiled some. His mood was quiet though not clearly down or depressed. He did not appear to be significantly distressed. Issues of thought disorder remain. He voiced no thoughts of harm. He is oriented and alert. ASSESSMENT: I will continue the current diagnosis and treatment plan. The primary focus in treatment at this point is addressing the court issues with the petition process. We will focus on stabilization and discharge planning. MMODL / IJN: [id number] /
[2021-06-25] MEDS: haloperidoL 5 MG TAB PO SCH ×2 (08:12→21:46)
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
[2021-06-26] MEDS: haloperidoL 5 MG TAB PO SCH (07:57)
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
--- NOTE | 2021-06-28 11:07 | P.PN ---
Progress Note - Text Progress Note Date: 06/28/21 Interval History: Patient was seen in group and was agreeable to speak with the mortgage loan underwriter in the office. The patient continues to report that he is not delusional and instead accuses this provider of being delusional for not believing him. He states that he has mountains of evidence to prove that he is not mentally ill and that the police have been framing him for crimes that they committed. He continues to refuse medications and states that he believes we are trying to place him on medications in order to get paid by "[employer]." He otherwise denies any suicidal or homicidal ideation, intention, and/or plan. He reports no auditory or visual hallucinations. Mental Status Exam: General Appearance: Patient appears to be stated age is alert, directable and cooperative today. Good hygiene and grooming with long dreadlocked hair. Behavior: Patient displays elevated psychomotor activity. Eye contact is intense. Speech: Patient's speech is pressured with increased rate, volume, and difficult to interrupt. Mood/Affect: Patient's mood is "I'm not delusional. You are." Affect is irritable and angry. Suicidality/Homicidality: The patient denies any suicidal or homicidal ideation, intention, and/or plan. Perceptions: The patient denies any overt auditory or visual hallucinations. Though content/process: Patient is endorsing paranoid and bizarre delusions. Thought process is linear but illogical. Memory and concentration: AOX3, grossly intact for the purposes of this session. Concentration is grossly intact. Judgment and insight: Very poor. Vital Signs Temp 97.7 F 06/28/21 06:43 Pulse 55 L 06/28/21 06:43 Resp 14 06/28/21 06:43 BP 104/64 06/28/21 06:43 Pulse Ox 95 06/22/21 05:56 Assessment Schizoaffective disorder, bipolar type Cannabis use disorder Plan: -Patient continues to meet criteria for inpatient psychiatric admission for symptom stabilization and safety. Patient has been petitioned and certified. Demand for court has been filed. He is scheduled for court 07/02/2021. -Medications: We will await a court order prior to restarting any antipsychotic medications. -When necessary Ativan and Haldol for agitation/aggression. -NRT - nicotine patch -SW on board for discharge planning. Encouraged the patient to participate in milieu.
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
--- NOTE | 2021-07-01 10:57 | P.PN ---
Progress Note - Text Progress Note Date: 07/01/21 Interval history: Patient was seen attending group and was directable and agreeable to speak with scenario writer. The patient reports no significant issues today. He reports he is preparing his paperwork and his statements for court tomorrow. He is otherwise not reporting any suicidal or homicidal ideation, intention, and/or plan. He reports no auditory or visual hallucinations. He continues to maintain his delusions of persecution by the police. He continues to refuse any medication at this time. Mental status exam: General Appearance: Patient appears to be stated age is alert, directable and cooperative today. Behavior: No agitated behavior today. Speech: Patient's speech is fluent and nonpressured. Mood/Affect: Mood is "okay." Affect is irritable. Suicidality/Homicidality: Patient denies having any suicidal or homicidal ideation intent or plan. Perceptions: Patient denies any auditory or visual hallucinations. Though content/process: Patient continues to be delusional. Memory and concentration: AOX3, grossly intact for the purposes of this session Judgment and insight: improving mildly Vital Signs Temp 98.1 F 07/01/21 06:44 Pulse 77 07/01/21 06:44 Resp 16 07/01/21 06:44 BP 126/68 07/01/21 06:44 Pulse Ox 99 06/29/21 05:20 Assessment/Plan: Continue with current diagnosis. Patient continues to meet criteria for inpatient psychiatric admission for symptom stabilization and safety. Awaiting court order for mental health treatment and medications. Patient is scheduled for court on Friday. Monitor for medication compliance and for any psychotropic medication side effects. Will continue to monitor ongoing response to treatment. Encouraged participation in milieu.
[2021-07-02] MEDS ORDERED: OLANZapine 10 MG VIAL IM PRN (14:36)
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
[2021-07-03] MEDS: risperiDONE 1 MG TAB PO SCH ×2 (11:39→21:47)
[2021-07-04] MEDS: risperiDONE 1 MG TAB PO SCH (08:04)
--- NOTE | 2021-07-04 11:16 | P.PN ---
Progress Note - Text Progress Note Date: 07/04/21 Interval History: Patient was seen in group and was agreeable to speak with the real estate underwriter. The p atient is now court ordered for medications. The patient continues to express that he is receiving medications that will be detrimental in his ability to function. He maintains that these medications will cause him to lose his memory, lose his ability to work, affect his relationship with his girlfriend, and ruin his life. He initially mentioned it was haldol that did this but is now stating risperdal is one of the medications that did this as well. He is otherwise not reporting any suicidal or homicidal ideation, intention, and/or plan. He reports no auditory or visual hallucinations. Mental Status Exam: General Appearance: Patient appears to be stated age is alert, directable and cooperative. Good hygiene and grooming with long dreadlocked hair. Behavior: Patient displays elevated psychomotor activity. Eye contact is intense. Speech: Patient's speech is pressured with increased rate, volume, and difficult to interrupt. Mood/Affect: Patient's mood is "Scared for my life." Affect is anxious. Suicidality/Homicidality: The patient denies any suicidal or homicidal ideation, intention, and/or plan. Perceptions: The patient denies any overt auditory or visual hallucinations. Though content/process: Patient is endorsing paranoid and bizarre delusions. Thought process is linear but illogical. Fixated on not receiving medications. Memory and concentration: AOX3, grossly intact for the purposes of this session. Concentration is grossly intact. Judgment and insight: Very poor. Vital Signs Temp 98.7 F 07/04/21 06:55 Pulse 73 07/04/21 06:55 Resp 16 07/04/21 06:55 BP 117/72 07/04/21 06:55 Pulse Ox 99 06/29/21 05:20 Assessment Schizoaffective disorder, bipolar type Cannabis use disorder Plan: -Patient continues to meet criteria for inpatient psychiatric admission for symptom stabilization and safety. -Patient is now court ordered for treatment. -Medications: Increase risperdal to 1mg in the morning and 2 mg at bedtime for schizoaffective disorder with plans to transition to invega sustenna or risperdal consta. As patient is under court order, if he refuses, administer Zyprexa 5 mg IM as needed. -When necessary Ativan and Haldol for agitation/aggression. -NRT - nicotine patch -SW on board for discharge planning. Encouraged the patient to participate in milieu.
[2021-07-04] MEDS ORDERED: risperiDONE 2 MG TAB PO SCH (21:00)
[2021-07-05] MEDS ORDERED: risperiDONE 1 MG TAB PO SCH (09:00)
--- NOTE | 2021-07-05 10:01 | P.PN ---
Progress Note - Text Progress Note Date: 07/05/21 Interval History: Patient was seen in group and was agreeable to speak with the insurance underwriter. The patient has been compliant with his medications but continues to maintain that medications were the reason for his deterioration in his ability to maintain his high paying job and his memory. 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 He refuses to acknowledge that his hospitalizations occur in the context of not having any medications in the first place. The patient is not reporting any suicidal or homicidal ideation, intention, and/or plan. He is not reporting any auditory or visual hallucinations. He continues to express concern that the medications may contribute to rectal dysfunction and weight gain. He is agreeable to switching medications to Abilify for a ignition specialist side effect profile. He continues to be hesitant on a long-acting injectable but understands that he is now court ordered and will receive it if ordered. Currently, the patient expressed that he is experiencing tinnitus. Mental Status Exam: General Appearance: Patient appears to be stated age is alert, directable and cooperative. Good hygiene and grooming with long dreadlocked hair. Behavior: Patient displays elevated psychomotor activity. Eye contact is intense. Speech: Patient's speech is nonpressured, spontaneous, and interruptible. Mood/Affect: Patient's mood is "a little irritable." Affect is anxious. Suicidality/Homicidality: The patient denies any suicidal or homicidal ideation, intention, and/or plan. Perceptions: The patient denies any overt auditory or visual hallucinations. Though content/process: Patient is endorsing paranoid and bizarre delusions. Thought process is linear but illogical. Fixated on not receiving medications. Memory and concentration: AOX3, grossly intact for the purposes of this session. Concentration is grossly intact. Judgment and insight: Very poor. Vital Signs Temp 98.7 F 07/04/21 06:55 Pulse 73 07/04/21 06:55 Resp 16 07/04/21 06:55 BP 117/72 07/04/21 06:55 Pulse Ox 99 06/29/21 05:20 Assessment Schizoaffective disorder, bipolar type Cannabis use disorder Plan: -Patient continues to meet criteria for inpatient psychiatric admission for symptom stabilization and safety. -Patient is now court ordered for treatment. -Medications: In light of side effect profile, we will discontinue Risperdal and start Abilify 15 mg at bedtime. We'll transition the patient to Abilify maintena prior to discharge. The patient refuses his oral Abilify he'll be administered Zyprexa 5 mg IM as he is now under court order. -SW on board for discharge planning. Encouraged the patient to participate in milieu.
[2021-07-05] MEDS: ARIPiprazole 15 MG TAB PO SCH (20:09)
--- NOTE | 2021-07-06 10:30 | P.PN ---
Progress Note - Text Progress Note Date: 07/06/21 Interval History: Patient was seen in group and was agreeable to speak with the insurance underwriter. The claribel quan presents to this insurance underwriter the copy of the side effects of abilify. He highlights concerns regaring decreased sweat, increased heat, and risk for overheating when on abilify during strenuous exercise. He maintains he likes to exercise frequently and expresses that he wants to highlight this to this provider. He also endorses numerous somatic complaints currently stating his gums are bleeding and that he is experiencing tinnitus. 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 Patient continues to hold the stance that medications are dangerous for him but is taking the medications as he is court ordered. Mental Status Exam: General Appearance: Patient appears to be stated age is alert, directable and cooperative. Good hygiene and grooming with long dreadlocked hair. Behavior: Patient displays elevated psychomotor activity. Eye contact is intense. Speech: Patient's speech is nonpressured, spontaneous, and interruptible. Mood/Affect: Patient's mood is "I'm scare of the medications." Affect is anxious. Suicidality/Homicidality: The patient denies any suicidal or homicidal ideation, intention, and/or plan. Perceptions: The patient denies any overt auditory or visual hallucinations. Though content/process: Patient is endorsing paranoid and bizarre delusions. Thought process is linear but illogical. Fixated on not receiving medications. Numerous somatic complaints today. Memory and concentration: AOX3, grossly intact for the purposes of this session. Concentration is grossly intact. Judgment and insight: Very poor. Vital Signs Temp 98.1 F 07/06/21 06:32 Pulse 75 07/06/21 06:32 Resp 15 07/06/21 06:32 BP 120/70 07/06/21 06:32 Pulse Ox 99 06/29/21 05:20 Intake & Output 07/05/21 07/06/21 07/06/21 18:59 06:59 18:59 Weight 75.5 kg Assessment Schizoaffective disorder, bipolar type Cannabis use disorder Plan: -Patient continues to meet criteria for inpatient psychiatric admission for symptom stabilization and safety. -Patient is now court ordered for treatment. -We will need to confirm whether the patient is under a retirement hold. -Medications: Continue Abilify 15 mg at bedtime with plans to increase to 20 mg over the weekend. The plan is to transition the patient to VERMA Abilify Maintena. The patient refuses his oral Abilify he'll be administered Zyprexa 5 mg IM as he is now under court order. -SW on board for discharge planning. Encouraged the patient to participate in milieu.
[2021-07-06] MEDS: ARIPiprazole 15 MG TAB PO SCH (20:20)
[2021-07-07 06:54] VITALS: RESP 18
--- NOTE | 2021-07-07 15:54 | PN ---
PROGRESS NOTE DATE OF SERVICE: 07/07/2021. CHIEF COMPLAINT: The patient was brought to the hospital under petition by police. He has apparently had long-term issues with psychosis and persistent delusions. INTERVAL HISTORY: The patient has been doing fairly well. He had a quiet day yesterday. He comes out on the unit. He interacts with others. He attended most of the groups yesterday and seemed to engage in a reasonable way in groups. He notes that the issues relating to the petition process are resolved. He has been accepting medications. He understands that part of the treatment plan would be to transition him to [facility]. He tolerates his psychotropic medications. MENTAL STATUS EXAMINATION: Patient was somewhat restless. He gave good eye contact. He answered questions appropriately. His thoughts were clear and coherent. His affect was in a reasonable range. He had a friendly manner. His mood was a little reserved though not clearly down or depressed. He did not appear to be distressed. It was difficult to assess for thought disorder. He voiced no thoughts of harm. Cognition was clear. ASSESSMENT: I will continue the current diagnosis and treatment plan. I will continue psychotropic medications the same. I will review treatment issues with the patient further in regard to transitioning to [facility]. I would anticipate the patient being discharged fairly soon. Will continue to focus on stabilization and discharge planning. YESSI / BHAVANI: [id number] /
[2021-07-08] MEDS ORDERED: ARIPiprazole IM 400 MG VIAL (NO COST) PHARMACY STOCK IM ONE (12:00)
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
[2021-07-09] MEDS ORDERED: ARIPiprazole 10 MG TAB PO SCH (21:00)
[2021-07-10 06:56] VITALS: BP 127/67; PULSE 78; TEMP 97.6
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
== END 2021-07-10 15:09 | DRG 885 ==
LOC: EC 15:57 → 3MHU 19:51
PROVIDERS: ADMIT Psychiatry & Neurology Psychiatry; ATTEND Psychiatry & Neurology Psychiatry
DX: F25.0 Schizoaffective disorder, bipolar type (principal); F17.210 Nicotine dependence, cigarettes, uncomplicated; F41.9 Anxiety disorder, unspecified; G40.909 Epilepsy, unspecified, not intractable, without status epilepticus; F12.10 Cannabis abuse, uncomplicated; H93.19 Tinnitus, unspecified ear; Z20.822 Contact with and (suspected) exposure to COVID-19; Z79.899 Other long term (current) drug therapy; Z80.0 Family history of malignant neoplasm of digestive organs; Z91.83 Wandering in diseases classified elsewhere; R45.1 Restlessness and agitation; Z56.0 Unemployment, unspecified; Z98.890 Other specified postprocedural states; Z65.3 Problems related to other legal circumstances; Z88.6 Allergy status to analgesic agent; Z88.8 Allergy status to other drugs, medicaments and biological substances; Z83.3 Family history of diabetes mellitus; Z82.0 Family history of epilepsy and other diseases of the nervous system
CPT/HCPCS: 80053; 80061; 80306; 81003; 82075; 83036; 84443; 85025; 87635; 99285

== ENCOUNTER 2022-06-11 16:14 | Emergency (ER) | payer BC, OTHER ==
[2022-06-11 16:24] VITALS: BP 114/73; PULSE 73; RESP 18; TEMP 98
--- NOTE | 2022-06-11 18:14 | ED ---
General Adult HPI - General Chief complaint: Headache Stated complaint: Headache,Teeth pain Time Seen by Provider: 06/11/22 16:28 Source: patient Mode of arrival: ambulatory Limitations: no limitations - History of Present Illness Initial comments: Patient is a 36-year-old male presenting with chief complaint of "flulike symptoms". Patient states that yesterday he started experiencing chills, body aches, headache, nasal congestion. Patient has not taken any medication at home for his symptoms. Denies any chest pain, difficulty breathing, abdominal pain, nausea, vomiting, neck pain or stiffness, vision or hearing changes, difficulty swallowing, dizziness, fever. - Related Data Previous Rx's Medication Instructions Recorded Hydrocortisone Cream 1 applic TOPICAL BID #1 cream 11/27/21 [Hydrocortisone 1% Cream] Ziprasidone [Geodon] 20 mg PO BID 30 Days cap 11/27/21 Allergies Allergy/AdvReac Type Severity Reaction Status Date / Time aripiprazole [From Abilify] Allergy Rash/Hives Verified 06/11/22 16:24 ibuprofen Allergy Rash/Hives Verified 06/11/22 16:24 pseudoephedrine Allergy Rash/Hives Verified 06/11/22 16:24 [From Sudafed] alprazolam [From Xanax] AdvReac Confusion Verified 06/11/22 16:24 clonazepam [From Klonopin] AdvReac shaking Verified 06/11/22 16:24 escitalopram AdvReac seizures,insomnia, Verified 06/11/22 16:24 hallucinations Review of Systems ROS Statement: Those systems with pertinent positive or pertinent negative responses have been documented in the HPI. ROS Other: All systems not noted in ROS Statement are negative. Past Medical History Past Medical History: Seizure Disorder Additional Past Medical History / Comment(s): seizures from medication- patient reported this as last admission, he now states that he went to the ER to be evaluated for this and he told him he had no signs of seizures. 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 History of Any Multi-Drug Resistant Organisms: None Reported Past Surgical History: No Surgical Hx Reported Additional Past Surgical History / Comment(s): surgery when he was 4 years old removall of knee cap cyst Past Anesthesia/Blood Transfusion Reactions: Unable to Obtain Past Psychological History: Anxiety, Depression Smoking Status: Former smoker Past Alcohol Use History: Occasional Past Drug Use History: Cocaine, Marijuana - Past Family History Father Additional Family Medical History / Comment(s): Valvular heart disease, diabetes mellitus type 2, and neuropathy Mother Additional Family Medical History / Comment(s): colon cancer General Exam Limitations: no limitations General appearance: alert, in no apparent distress Head exam: Present: atraumatic, normocephalic, normal inspection Eye exam: Present: normal appearance, PERRL, EOMI. Absent: scleral icterus, conjunctival injection, periorbital swelling Neck exam: Present: normal inspection, full ROM Respiratory exam: Present: normal lung sounds bilaterally. Absent: respiratory distress, wheezes, rales, rhonchi, stridor Cardiovascular Exam: Present: regular rate, normal rhythm, normal heart sounds. Absent: systolic murmur, diastolic murmur, rubs, gallop, clicks Neurological exam: Present: alert, oriented X3, CN II-XII intact Psychiatric exam: Present: normal affect, normal mood Skin exam: Present: warm, dry, intact, normal color. Absent: rash Course Vital Signs 06/11/22 16:21 Temperature 98 F Pulse Rate 73 Respiratory 18 Rate Blood Pressure 114/73 O2 Sat by Pulse 98 Oximetry Medical Decision Making - Medical Decision Making Patient is a 36-year-old male presenting with chief complaint of flulike symptoms. Minutes to headache, body aches, chills, congestion that started yesterday. Physical examination is unremarkable. Patient tested negative for Covid and influenza. Symptoms are likely viral in nature. Educated on supportive treatment. Follow-up with PCP. Report back to ER with any new or worsening symptoms. Discussed return parameters and answered all questions. Patient conveyed verbal understanding and agreed to the plan. I discussed this case in detail with my attending Dr. Pretty. - Lab Data Lab Results 06/11/22 06/11/22 Range/Units 17:06 17:06 Coronavirus (PCR) Not Detected (Not Detectd) Influenza Type A RNA Not Detected (Not Detectd) Influenza Type B (PCR) Not Detected (Not Detectd) Disposition Clinical Impression: Viral URI Disposition: HOME SELF-CARE Condition: Good Instructions (If sedation given, give patient instructions): Upper Respiratory Infection (ED), Viral Syndrome (ED) Additional Instructions: Follow-up with PCP. Report back to ER with any new or worsening symptoms. Drink plenty of fluids and get plenty of rest. Take Motrin and Tylenol as needed for pain or fever control. Is patient prescribed a controlled substance at d/c from ED?: No Referrals: None,Stated [Primary Care Provider] - 1-2 days Time of Disposition: 18:14
== END 2022-06-11 18:27 | disposition home or self-care (01) ==
LOC: EC 16:14
DX: J06.9 Acute upper respiratory infection, unspecified (principal); Z87.891 Personal history of nicotine dependence; Z20.822 Contact with and (suspected) exposure to COVID-19; Z88.6 Allergy status to analgesic agent; Z88.8 Allergy status to other drugs, medicaments and biological substances
CPT/HCPCS: 87502; 87635; 99284

== ENCOUNTER 2022-06-16 13:45 | Emergency (ER) | payer BC, OTHER ==
[2022-06-16 14:06] VITALS: BP 118/81; PULSE 77; RESP 20; TEMP 97.6
--- NOTE | 2022-06-16 16:20 | ED ---
General Adult HPI - General Chief complaint: Extremity Problem,Nontraumatic Stated complaint: Bilateral hand and foot pain Time Seen by Provider: 06/16/22 16:07 Source: patient, RN notes reviewed, old records reviewed Mode of arrival: ambulatory Limitations: no limitations - History of Present Illness Initial comments: 36-year-old well-appearing male presents ambulatory to the emergency room with complaints of bilateral hand pain. Patient states that his hands have shrunk in size overnight after doing multiple pull-ups yesterday. He states that they both ache. He also noticed that his feet have shrunk over the past year from a size 13 to a 10. He states he has been working out and eating better, denies any significant weight loss. Denies any other pain or discomfort. No nausea vomiting diarrhea or fevers. Patient does have a history of marijuana and cocaine abuse but denies any recent use stating he is on probation and is required to "drop" urine. Patient also has history of schizophrenia and seizure disorder. He is a nonsmoker -: days(s) (1) Location: left, right, upper extremity (hands) Severity scale (1-10): 3 Quality: aching Consistency: constant Improves with: none Worsens with: none Treatments Prior to Arrival: none - Related Data Previous Rx's Medication Instructions Recorded Hydrocortisone Cream 1 applic TOPICAL BID #1 cream 11/27/21 [Hydrocortisone 1% Cream] Ziprasidone [Geodon] 20 mg PO BID 30 Days cap 11/27/21 Allergies Allergy/AdvReac Type Severity Reaction Status Date / Time aripiprazole [From Abilify] Allergy Rash/Hives Verified 06/16/22 14:06 ibuprofen Allergy Rash/Hives Verified 06/16/22 14:06 pseudoephedrine Allergy Rash/Hives Verified 06/16/22 14:06 [From Sudafed] alprazolam [From Xanax] AdvReac Confusion Verified 06/16/22 14:06 clonazepam [From Klonopin] AdvReac shaking Verified 06/16/22 14:06 escitalopram AdvReac seizures,insomnia, Verified 06/16/22 14:06 hallucinations Review of Systems ROS Statement: Those systems with pertinent positive or pertinent negative responses have been documented in the HPI. ROS Other: All systems not noted in ROS Statement are negative. Past Medical History Past Medical History: Seizure Disorder Additional Past Medical History / Comment(s): seizures from medication- patient reported this as last admission, he now states that he went to the ER to be evaluated for this and he told him he had no signs of seizures. 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 History of Any Multi-Drug Resistant Organisms: None Reported Past Surgical History: No Surgical Hx Reported Additional Past Surgical History / Comment(s): surgery when he was 4 years old removall of knee cap cyst Past Anesthesia/Blood Transfusion Reactions: Unable to Obtain Past Psychological History: Anxiety, Depression Smoking Status: Former smoker Past Alcohol Use History: Occasional Past Drug Use History: Cocaine, Marijuana - Past Family History Father Additional Family Medical History / Comment(s): Valvular heart disease, diabetes mellitus type 2, and neuropathy Mother Additional Family Medical History / Comment(s): colon cancer General Exam Limitations: no limitations General appearance: alert, in no apparent distress Eye exam: Absent: scleral icterus, conjunctival injection, periorbital swelling ENT exam: Present: mucous membranes moist Neck exam: Present: normal inspection. Absent: tenderness, meningismus Respiratory exam: Present: normal lung sounds bilaterally. Absent: respiratory distress, wheezes, rales, rhonchi, stridor, chest wall tenderness, accessory muscle use Cardiovascular Exam: Present: regular rate Extremities exam: Present: full ROM, normal capillary refill. Absent: tenderness, pedal edema, calf tenderness Back exam: Present: full ROM. Absent: tenderness, CVA tenderness (R), CVA tenderness (L), rash noted Neurological exam: Present: alert, oriented X3, normal gait. Absent: abnormal gait, motor sensory deficit Psychiatric exam: Present: normal affect, normal mood. Absent: depressed, agitated, anxious, manic Skin exam: Present: warm, dry, normal color. Absent: cyanosis, diaphoretic, petechiae, pallor Course Vital Signs 06/16/22 14:04 Temperature 97.6 F Pulse Rate 77 Respiratory 20 Rate Blood Pressure 118/81 O2 Sat by Pulse 99 Oximetry Medical Decision Making - Medical Decision Making CBC and electrolytes are unremarkable. Patient has full range of motion and good strength of both hands. Capillary refill less than 2 seconds. No swelling noted to hands or feet. No other abnormalities noted. His hand pain may be related to the multiple pull-ups he did yesterday. He was directed to take Tylenol for pain. I do not have a reason for patient's concern that his hands are smaller overnight nor do I have a reason for why his feet have shrunk 3 sizes over the past year. He was instructed to follow-up with his primary care doctor as needed. He was given a work note as requested for today. Case discussed with Dr. Appiah. - Lab Data Result diagrams: 06/16/22 16:22 06/16/22 16:22 Lab Results 06/16/22 06/16/22 Range/Units 16:22 16:22 WBC 6.5 (3.8-10.6) k/uL RBC 5.06 (4.30-5.90) m/uL Hgb 15.3 (13.0-17.5) gm/dL Hct 43.0 (39.0-53.0) % MCV 85.1 (80.0-100.0) fL MCH 30.3 (25.0-35.0) pg MCHC 35.6 (31.0-37.0) g/dL RDW 11.6 (11.5-15.5) % Plt Count 267 (150-450) k/uL MPV 7.2 Neutrophils % 49 % Lymphocytes % 37 % Monocytes % 8 % Eosinophils % 3 % Basophils % 1 % Neutrophils # 3.2 (1.3-7.7) k/uL Lymphocytes # 2.4 (1.0-4.8) k/uL Monocytes # 0.5 (0-1.0) k/uL Eosinophils # 0.2 (0-0.7) k/uL Basophils # 0.1 (0-0.2) k/uL Sodium 139 (137-145) mmol/L Potassium 4.2 (3.5-5.1) mmol/L Chloride 102 (98-107) mmol/L Carbon Dioxide 28 (22-30) mmol/L Anion Gap 9 mmol/L BUN 15 (9-20) mg/dL Creatinine 0.68 (0.66-1.25) mg/dL Est GFR (CKD-EPI)AfAm >90 (>60 ml/min/1.73 sqM) Est GFR (CKD-EPI)NonAf >90 (>60 ml/min/1.73 sqM) Glucose 95 (74-99) mg/dL Calcium 9.3 (8.4-10.2) mg/dL Disposition Clinical Impression: Bilateral hand pain, Arthralgia Disposition: HOME SELF-CARE Condition: Good Instructions (If sedation given, give patient instructions): Arthralgia (ED) Additional Instructions: Use Tylenol for any pain or discomfort. Increase your fluid intake. Follow-up with the primary care doctor for continuation of care. Is patient prescribed a controlled substance at d/c from ED?: No Referrals: None,Stated [Primary Care Provider] - 1-2 days Time of Disposition: 16:48
[2022-06-16 16:32] LABS: Basophils # (A) 0.1 k/uL (0-0.2); Basophils % (A) 1 %; Eosinophils # (A) 0.2 k/uL (0-0.7); Eosinophils % (A) 3 %; HGB 15.3 gm/dL (13.0-17.5); Lymphocytes # (A) 2.4 k/uL (1.0-4.8); Lymphocytes % (A) 37 %; MCH 30.3 pg (25.0-35.0); MCHC 35.6 g/dL (31.0-37.0); MCV 85.1 fL (80.0-100.0); Mean Platelet Volume 7.2; Monocytes # (A) 0.5 k/uL (0-1.0); Monocytes % (A) 8 %; Neutrophils # (A) 3.2 k/uL (1.3-7.7); Neutrophils % (A) 49 %; Platelet Count 267 k/uL (150-450); RBC 5.06 m/uL (4.30-5.90); RDW 11.6 % (11.5-15.5); WBC 6.5 k/uL (3.8-10.6)
[2022-06-16 16:41] LABS: African American GFR (CKD) >90 (>60 ml/min/1.73 sqM); Anion Gap 9 mmol/L; Blood Urea Nitrogen 15 mg/dL (9-20); Calcium 9.3 mg/dL (8.4-10.2); Carbon Dioxide 28 mmol/L (22-30); Chloride 102 mmol/L (98-107); Glucose 95 mg/dL (74-99); Non-African American GFR(CKD) >90 (>60 ml/min/1.73 sqM); Potassium 4.2 mmol/L (3.5-5.1); Sodium 139 mmol/L (137-145)
[2022-06-16] MEDS ORDERED: ACETAMINOPHEN TAB 325 MG TAB PO STA (16:50)
== END 2022-06-16 17:10 | disposition home or self-care (01) ==
LOC: EC 13:45
DX: M79.642 Pain in left hand (principal); M79.641 Pain in right hand; M25.50 Pain in unspecified joint; F12.90 Cannabis use, unspecified, uncomplicated; Z87.891 Personal history of nicotine dependence; Z88.8 Allergy status to other drugs, medicaments and biological substances; Z88.6 Allergy status to analgesic agent; Z88.2 Allergy status to sulfonamides
CPT/HCPCS: 36415; 80048; 85025; 99283

== ENCOUNTER 2024-01-08 08:22 | Inpatient (IN) | payer BC, MEDICAID, OTHER ==
[2024-01-08 10:28] LABS: Amphetamine Screen,Urine Not Detected (NotDetected); Barbiturate Screen,Urine Not Detected (NotDetected); Benzodiazepines Screen,Urine Not Detected (NotDetected); Cocaine Screen,Urine Not Detected (NotDetected); Methadone Screen, Urine Not Detected (NotDetected); Opiate Screen,Urine Not Detected (NotDetected); Oxycodone Screen, Urine Not Detected (NotDetected); Phencyclidine Screen,Urine Not Detected (NotDetected); Tricyclic Antidepressant,Urine Not Detected (NotDetected); Urn Cannabinoid Scrn Detected (NotDetected)
--- NOTE | 2024-01-08 10:53 | ED ---
Psych HPI - General Source: patient, police, RN notes reviewed Mode of arrival: ambulatory Limitations: no limitations <Vinod Swenson - Last Filed: 01/08/24 12:07> <Maurice Pretty - Last Filed: 01/08/24 12:25> - General Chief Complaint: Psychiatric Symptoms Stated Complaint: Mental health Time Seen by Provider: 01/08/24 08:31 - History of Present Illness Initial Comments: 38-year-old male presents emergency department with police for psychiatric evaluation. Patient was court ordered [place] for psychiatric evaluation he denies any complaints denies being suicidal homicidal patient does have delusional thoughts at this time and is paranoid. Patient denies any alcohol abuse he does mention marijuana use no other drug use. Denies any physical complaints. (Vinod Swenson) - Related Data Home Medications Medication Instructions Recorded Confirmed No Known Home Medications 01/08/24 01/08/24 Allergies Allergy/AdvReac Type Severity Reaction Status Date / Time aripiprazole [From Abilify] Allergy Rash/Hives Verified 01/08/24 11:36 ibuprofen Allergy Rash/Hives Verified 01/08/24 11:36 pseudoephedrine Allergy Rash/Hives Verified 01/08/24 11:36 [From Sudafed] alprazolam [From Xanax] AdvReac Confusion Verified 01/08/24 11:36 clonazepam [From Klonopin] AdvReac shaking Verified 01/08/24 11:36 escitalopram AdvReac seizures,insomnia, Verified 01/08/24 11:36 hallucinations Review of Systems ROS Other: All systems not noted in ROS Statement are negative. <Vinod Swenson - Last Filed: 01/08/24 12:07> ROS Other: All systems not noted in ROS Statement are negative. <Maurice Pretty - Last Filed: 01/08/24 12:25> ROS Statement: Those systems with pertinent positive or pertinent negative responses have been documented in the HPI. Past Medical History Past Medical History: Seizure Disorder Additional Past Medical History / Comment(s): seizures from medication- patient reported this as last admission, he now states that he went to the ER to be evaluated for this and he told him he had no signs of seizures. 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 History of Any Multi-Drug Resistant Organisms: None Reported Past Surgical History: No Surgical Hx Reported Additional Past Surgical History / Comment(s): surgery when he was 4 years old removall of knee cap cyst Past Anesthesia/Blood Transfusion Reactions: Unable to Obtain Past Psychological History: Anxiety, Depression Smoking Status: Former smoker Past Alcohol Use History: Occasional Past Drug Use History: Cocaine, Marijuana - Past Family History Father Additional Family Medical History / Comment(s): Valvular heart disease, diabetes mellitus type 2, and neuropathy Mother Additional Family Medical History / Comment(s): colon cancer <Vinod Swenson - Last Filed: 01/08/24 12:07> General Exam Limitations: no limitations General appearance: alert, in no apparent distress Head exam: Present: atraumatic, normocephalic, normal inspection Eye exam: Present: normal appearance, PERRL, EOMI. Absent: scleral icterus, conjunctival injection, periorbital swelling ENT exam: Present: normal exam, normal oropharynx, mucous membranes moist Neck exam: Present: normal inspection, full ROM. Absent: tenderness, meningismus, lymphadenopathy Respiratory exam: Present: normal lung sounds bilaterally. Absent: respiratory distress, wheezes, rales, rhonchi, stridor Cardiovascular Exam: Present: regular rate, normal rhythm, normal heart sounds. Absent: systolic murmur, diastolic murmur, rubs, gallop, clicks GI/Abdominal exam: Present: soft, normal bowel sounds. Absent: distended, tenderness, guarding, rebound, rigid Neurological exam: Present: alert, oriented X3 Psychiatric exam: Present: anxious Skin exam: Present: warm, dry, intact, normal color. Absent: rash <Vinod Swenson - Last Filed: 01/08/24 12:07> Course <Maurice Pretty - Last Filed: 01/08/24 12:25> Vital Signs 01/08/24 08:26 Temperature 98 F Pulse Rate 95 Respiratory 20 Rate Blood Pressure 166/102 O2 Sat by Pulse 99 Oximetry - Reevaluation(s) Reevaluation #1: 01/08/24 12:24 I personally evaluated the patient and following the recommendations of EPS this patient will be admitted. He required a clinical certification which I completed myself. (Maurice Pretty) Medical Decision Making <Vinod Swenson - Last Filed: 01/08/24 12:07> - Medical Decision Making Was pt. sent in by a medical professional or institution (, ANNA, GREENHOUSE LABORER, urgent care, hospital, or senior care...) When possible be specific @ -[No] Did you speak to anyone other than the patient for history (EMS, parent, family, police, friend...)? What history was obtained from this source @ -No Did you review nursing and triage notes (agree or disagree)? Why? @ -I reviewed and agree with nursing and triage notes Were old charts reviewed (outside hosp., previous admission, EMS record, old EKG, old radiological studies, urgent care reports/EKG's, senior care records)? Report findings @ -No old charts were reviewed Differential Diagnosis (chest pain, altered mental status, abdominal pain women, abdominal pain men, vaginal bleeding, weakness, fever, dyspnea, syncope, headache, dizziness, GI bleed, back pain, seizure, CVA, palpatations, mental health, musculoskeletal)? @ -Differential Mental Health Depression, anxiety, bipolar, psychosis, schizophrenia, borderline personality, situational depression, adjustment disorder, behavioral disorder, brain tumor, malingering, substance abuse, encephalopathy, medication reaction, dementia, hypothyroidism, degenerative neurologic disorder, lupus.... This is not meant to be all-inclusive list EKG interpreted by me (3pts min.). @ -None X-rays interpreted by me (1pt min.). @ -None done CT interpreted by me (1pt min.). @ -None done U/S interpreted by me (1pt. min.). @ -None done What testing was considered but not performed or refused? (CT, X-rays, U/S, labs)? Why? @ -None What meds were considered but not given or refused? Why? @ -None Did you discuss the management of the patient with other professionals (professionals i.e. , ANNA, GREENHOUSE LABORER, lab, RT, psych nurse, 7th grade social studies teacher, kitchen manager, teacher, environmental conservation officer, case management manager)? Give summary @ -EPS, psychiatrist evaluated patient recommended inpatient treatment Was smoking cessation discussed for >3mins.? @ -No Was critical care preformed (if so, how long)? @ -No Were there social determinants of health that impacted care today? How? (Homelessness, low income, unemployed, alcoholism, drug addiction, transportation, low edu. Level, literacy, decrease access to med. care, half-way, rehab)? @ -No Was there de-escalation of care discussed even if they declined (Discuss DNR or withdrawal of care, Hospice)? DNR status @ -No What co-morbidities impacted this encounter? (DM, HTN, Smoking, COPD, CAD, Cancer, CVA, ARF, Chemo, Hep., AIDS, mental health diagnosis, sleep apnea, morbid obesity)? @ -None Was patient admitted / discharged? Hospital course, mention meds given and route, prescriptions, significant lab abnormalities, going to OR and other pertinent info. @ -Admitted to [facility] for psychiatric treatment Undiagnosed new problem with uncertain prognosis? @ -No Drug Therapy requiring intensive monitoring for toxicity (Heparin, Nitro, Insulin, Cardizem)? @ -No Were any procedures done? @ -No Diagnosis/symptom? @ -Psychosis Acute, or Chronic, or Acute on Chronic? @ -Acute Uncomplicated (without systemic symptoms) or Complicated (systemic symptoms)? @ -Complicated Side effects of treatment? @ -No Exacerbation, Progression, or Severe Exacerbation? @ -No Poses a threat to life or bodily function? How? (Chest pain, [place], [place], pneumonia, PE, COPD, DKA, ARF, appy, cholecystitis, CVA, Diverticulitis, Homicidal, Suicidal, threat to staff... and all critical care pts) @ -No (Vinod Swenson) - Lab Data Lab Results 01/08/24 01/08/24 Range/Units 08:51 09:40 Urine Opiates Screen Not Detected (NotDetected) Ur Oxycodone Screen Not Detected (NotDetected) Urine Methadone Screen Not Detected (NotDetected) Ur Barbiturates Screen Not Detected (NotDetected) U Tricyclic Antidepress Not Detected (NotDetected) Ur Phencyclidine Scrn Not Detected (NotDetected) Ur Amphetamines Screen Not Detected (NotDetected) U Methamphetamines Scrn Not Detected (NotDetected) U Benzodiazepines Scrn Not Detected (NotDetected) Urine Cocaine Screen Not Detected (NotDetected) U Marijuana (THC) Screen Detected H (NotDetected) Influenza Type A (PCR) Not Detected (Not Detectd) Influenza Type B (PCR) Not Detected (Not Detectd) RSV (PCR) Not Detected (Not Detectd) SARS-CoV-2 (PCR) Not Detected (Not Detectd) Disposition Time of Disposition: 12:06 <Vinod Swenson - Last Filed: 01/08/24 12:07> <Maurice Pretty - Last Filed: 01/08/24 12:25> Clinical Impression: Psychosis Disposition: TRANSFER TO PSYCH HOSP/UNIT Referrals: None,Stated [Primary Care Provider] - 1-2 days
[2024-01-08] MEDS ORDERED: MAGNESIUM HYDROXIDE 2,400 MG/30 ML CUP PO PRN (13:46)
[2024-01-08] MEDS ORDERED: MAG HYDROX/AL HYDROX/SIMETH 355 ML BOTTLE PO PRN (13:46)
[2024-01-08] MEDS ORDERED: ACETAMINOPHEN TAB 325 MG TAB PO PRN (13:46)
[2024-01-08] MEDS ORDERED: traZODone HCL 100 MG TAB PO PRN (13:48)
[2024-01-08] MEDS ORDERED: LORazepam 1 MG TAB PO PRN (13:48)
[2024-01-08] MEDS ORDERED: haloperidoL 5 MG TAB PO PRN (13:48)
[2024-01-08] MEDS ORDERED: HALOPERIDOL LACTATE 5 MG/ML 1 ML VIAL IM PRN (13:48)
[2024-01-08] MEDS ORDERED: LORazepam 2 MG/ML INJ IM PRN (13:48)
[2024-01-08 15:52] LABS: Appearance,Urine Clear (Clear); Bilirubin,Urine Negative (Negative); Blood,Urine Negative (Negative); Color,Urine Light Yellow; Glucose,Urine (UA) Negative (Negative); Ketones,Urine Negative (Negative); Leukocyte Esterase,Urine Negative (Negative); Nitrite,Urine Negative (Negative); PH, Urine 6.5 (5.0-8.0); Protein,Urine Negative (Negative); Specific Gravity,Urine 1.026 (1.001-1.035); Urobilinogen,Urine <2.0 mg/dL (<2.0)
--- NOTE | 2024-01-09 03:35 | P.CONS ---
History of Present Illness - Reason for Consult Consult date: 01/09/24 - History of Present Illness The patient is a 38-year-old male with a PMH of seizure disorder, anxiety, and depression who had presented to the emergency room after a court ordered petition for psychiatric evaluation. The patient had reportedly been acting strangely, paranoid, and had reported hallucinations. He was admitted to the mental health unit where he was seen and evaluated. The patient had no active complaints at the time of interview. He reports recreational marijuana use. Denied experiencing chest discomfort, shortness of breath, fever, chills, cough, nausea, vomiting, abdominal pain, diarrhea. He reports social alcohol use. Review of systems: Pertinent positives and negatives as discussed in HPI, a complete review of systems was performed and all other systems are negative. Physical examination: General: non toxic, no distress, appears at stated age, overweight Derm: no unusual rashes/lesions, no unusual ecchymoses, warm, dry Head: atraumatic, normocephalic, symmetric Eyes: EOMI, no lid lag, anicteric sclera ENT: Nose and ears atraumatic, no thrush, no pharyngeal erythema Neck: trachea midline, supple Mouth: no lip lesion, mucus membranes moist Cardiovascular: S1S2 reg, no murmur, no edema Lungs: CTA bilateral, no rhonchi, no rales , no accessory muscle use Abdominal: soft, nontender to palpation, no guarding Ext: no gross muscle atrophy, no contractures, Neuro: No gross focal neuro deficits noted Psych: Alert, oriented, disorganized thought process and flight of ideas Assessment: Marijuana abuse Psychosis Imaging: None performed Data Review: Laboratory evaluation was reviewed with urine toxicology positive for marijuana Plan: Advised on the importance of cessation Defer management of psychosis to primary psychiatry service Thank you for allowing us to participate in the care of this patient. We will follow peripherally. Do not hesitate to contact us with questions. Someone can be reached from the [facility] hospitalist group at all hours of the day at [phone]. Past Medical History Past Medical History: Seizure Disorder Additional Past Medical History / Comment(s): seizures from medication- patient reported this as last admission, he now states that he went to the ER to be evaluated for this and he told him he had no signs of seizures. He states that after getting a mental health medication while leaving [facility] he was in a 16 day seizure. 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 History of Any Multi-Drug Resistant Organisms: None Reported Past Surgical History: No Surgical Hx Reported Additional Past Surgical History / Comment(s): surgery when he was 4 years old removall of knee cap cyst Past Anesthesia/Blood Transfusion Reactions: Unable to Obtain Past Psychological History: Anxiety, Depression Smoking Status: Former smoker Past Alcohol Use History: Occasional Past Drug Use History: Cocaine, Marijuana - Past Family History Father Additional Family Medical History / Comment(s): Valvular heart disease, diabetes mellitus type 2, and neuropathy Mother Additional Family Medical History / Comment(s): colon cancer Medications and Allergies Home Medications Medication Instructions Recorded Confirmed Type No Known Home Medications 01/08/24 01/08/24 History Allergies Allergy/AdvReac Type Severity Reaction Status Date / Time aripiprazole [From Abilify] Allergy Rash/Hives Verified 01/08/24 11:36 ibuprofen Allergy Rash/Hives Verified 01/08/24 11:36 pseudoephedrine Allergy Rash/Hives Verified 01/08/24 11:36 [From Sudafed] alprazolam [From Xanax] AdvReac Confusion Verified 01/08/24 11:36 clonazepam [From Klonopin] AdvReac shaking Verified 01/08/24 11:36 escitalopram AdvReac seizures,insomnia, Verified 01/08/24 11:36 hallucinations Physical Exam Vitals: Vital Signs Temp Pulse Pulse Resp BP BP Pulse Ox 01/08/24 14:47 98.5 F 77 16 139/90 99 01/08/24 13:59 87 18 158/99 96 01/08/24 08:26 98 F 95 20 166/102 99 Intake and Output 01/08/24 01/08/24 01/09/24 14:59 22:59 06:59 Other: Weight 81.788 kg Results Labs: Abnormal Lab Results - Last 24 Hours (Table) 01/08/24 Range/Units 09:40 U Marijuana (THC) Screen Detected H (NotDetected)
[2024-01-09] MEDS: NICOTINE 14MG/24HR PATCH TRANSDERM SCH (08:41)
[2024-01-09 12:10] LABS: ALT 32 U/L (4-49); AST 28 U/L (17-59); African American GFR (CKD) >90 (>60 ml/min/1.73 sqM); Albumin 4.8 g/dL (3.5-5.0); Alkaline Phosphatase 88 U/L (38-126); Anion Gap 6 mmol/L; Basophils # (A) 0.1 k/uL (0-0.2); Basophils % (A) 1 %; Blood Urea Nitrogen 19 mg/dL (9-20); Calcium 9.9 mg/dL (8.4-10.2); Carbon Dioxide 26 mmol/L (22-30); Chloride 106 mmol/L (98-107); Eosinophils # (A) 0.1 k/uL (0-0.7); Eosinophils % (A) 1 %; Glucose 105 mg/dL (74-99); HCT 48.8 % (39.0-53.0); HGB 16.3 gm/dL (13.0-17.5); Lymphocytes # (A) 1.7 k/uL (1.0-4.8); Lymphocytes % (A) 26 %; MCH 30.1 pg (25.0-35.0); MCHC 33.5 g/dL (31.0-37.0); MCV 89.9 fL (80.0-100.0); Mean Platelet Volume 8.1; Monocytes # (A) 0.5 k/uL (0-1.0); Monocytes % (A) 8 %; Neutrophils % (A) 62 %; Non-African American GFR(CKD) >90 (>60 ml/min/1.73 sqM); Platelet Count 268 k/uL (150-450); Potassium 4.6 mmol/L (3.5-5.1); RBC 5.43 m/uL (4.30-5.90); RDW 11.9 % (11.5-15.5); Sodium 138 mmol/L (137-145); Total Bilirubin 0.7 mg/dL (0.2-1.3); Total Protein 7.9 g/dL (6.3-8.2); WBC 6.5 k/uL (3.8-10.6)
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
--- NOTE | 2024-01-10 12:18 | P.PN ---
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 He stated that assets have been seized, so he is homeless now. 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 Orientation times three Dressed and Groomed: Appropriately. In dreadlocks Pleasant and cooperative. Psychomotor Activity: Normal. Speech: Normal in tone, quality, Rapid and over productive. Mood:I'm going to get [place] citizenship Affect: very expensiveand grandiose SI or HI: None. Perceptual disturbance: None. Thought Content: Paranoid and grandiose delusions. Thought Process: Normal. Cognition: Intact Judgment and Insight: Poor AIMS: Normal Labs: Available labs reviewed. Diagnosis: Schizoaffective Disorder, Bipolar Type Plan and Recommendations: The patient declined to take any medication. He wants to go to court and talk to Scheduling Representative in person. Monitor MS. patient however remains pleasant is not aggressive or threatening Provide supportive psychotherapy and psychoeducation. The patient to see a therapist on a regular basis once a week/ attend canela Milieu. CBC with Diff, CMP, TSH, Lipid Profile, HbA1c, EKG, Mike Mendiola M.D. Objective - Vital Signs Vital signs: Vital Signs Temp 97.4 F L 01/10/24 06:31 Pulse 70 01/10/24 06:31 Resp 16 01/10/24 06:31 BP 121/78 01/10/24 06:31 Pulse Ox 97 05/17/24 11:47 FiO2 - Labs CBC & Chem 7: 01/09/24 11:06 01/09/24 11:06
--- NOTE | 2024-01-11 11:11 | P.PN ---
Subjective Progress Note Date: 01/11/24 Principal diagnosis: Diagnosis: Schizoaffective Disorder, Bipolar Type Patient Name: Maurice Villar Date of : 81 Patient Status: Inpatient Attending Provider: Maicol Gonzalez Date: 01/11/24 Initialization Date: 01/09/24 17:23 Active Medications Acetaminophen (Acetaminophen Tab 325 Mg Tab) 650 mg PO Q4HR PRN PRN Reason: Mild Pain (Scale 1 to 3) Al Hydroxide/Mg Hydroxide (Mag Hydrox/Al Hydrox/Simeth 355 Ml Bottle) 30 ml PO Q4HR PRN PRN Reason: GI Upset Haloperidol (Haloperidol 5 Mg Tab) 5 mg PO Q6H PRN PRN Reason: Agitation or Acute Psychosis Haloperidol Lactate (Haloperidol Lactate 5 Mg/Ml 1 Ml Vial) 5 mg IM Q6HR PRN PRN Reason: Agitation or Acute Psychosis Lorazepam (Lorazepam 2 Mg/Ml Inj) 1 mg IM Q6HR PRN PRN Reason: Agitation or Acute Anxiety Lorazepam (Lorazepam 1 Mg Tab) 1 mg PO Q6H PRN PRN Reason: Agitation or Acute Anxiety Magnesium Hydroxide (Magnesium Hydroxide 2,400 Mg/30 Ml Cup) 2,400 mg PO DAILY PRN PRN Reason: Constipation Nicotine (Nicotine 14mg/24hr Patch) 1 patch TRANSDERM DAILY ELPIDIO Last Admin: 01/11/24 08:53 Dose: Not Given Trazodone HCl (Trazodone Hcl 100 Mg Tab) 100 mg PO HS PRN PRN Reason: Sleep subjective data: The patient was seen chart was reviewed and case discussed with the nursing staff Patient was wandering around in the hallway and agreed to see this property underwriter patient seems quite social on the unit and was carrying on a conversation with several other patients Patient to return approach denies that he is having any problems or issues When asked about if he considers himself as having any emotional problems patient stated that he does not he does not feel that he has any issues or concerns when asked about taking any medications patient says that he would rather go to the court and that he does not have any issues or problems In general remains pleasant and cooperative Denies any auditory or visual hallucinations Denies any thoughts of wanting to hurt himself or others MSE: Alert and attentive. Orientation times three Dressed and Groomed: Appropriately. In dreadlocks Pleasant and cooperative. Psychomotor Activity: Normal. Speech: Normal in tone, quality, Rapid and over productive. Mood:I'm going to get [place] citizenship Affect: very expensiveand grandiose SI or HI: None. Perceptual disturbance: None. Thought Content: Paranoid and grandiose delusions. Thought Process: Normal. Cognition: Intact Judgment and Insight: Poor AIMS: Normal Labs: Available labs reviewed. Diagnosis: Schizoaffective Disorder, Bipolar Type Plan and Recommendations: The patient declined to take any medication. He wants to go to court and talk to Engineer Third Assistant in person. Monitor MS. patient however remains pleasant is not aggressive or threatening Provide supportive psychotherapy and psychoeducation. The patient to see a therapist on a regular basis once a week/ attend canela Milieu. CBC with Diff, CMP, TSH, Lipid Profile, HbA1c, EKG, Mike Mendiola M.D. Objective - Vital Signs Vital signs: Vital Signs Temp 97.8 F 01/11/24 09:36 Pulse 85 01/11/24 09:36 Resp 16 01/11/24 09:36 BP 138/81 01/11/24 09:36 Pulse Ox 98 01/11/24 09:36 FiO2 Intake & Output 01/10/24 01/11/24 01/11/24 18:59 06:59 18:59 Weight 81.783 kg - Labs CBC & Chem 7: 01/09/24 11:06 01/09/24 11:06
--- NOTE | 2024-01-12 21:48 | P.PN ---
Progress Note - Text Progress Note Date: 01/12/24 In-Patient Follow-up Chief Complaint: I am doing fine. Subjective: The patient noted that he is fine, He will see a dance entertainer. The patient disagrees what is written in the papers. He had petition in his hands. The noted that he cannot put chemicals in his body. He claims that when he took chemicals last time his penis shrank and then disappeared, I dont have a penis. He stated that he can never have a child, I cannot have a or a girlfriend. He denied feeling depressed. He has been visible on the canela and participating in groups. Overall, the patient remains very delusional and refuses to take medications. He seems to function better in a closed, structured secure setting. Will continue motivating patient to take medications. Leading questions: The patient denied Depression and Anxiety. Denied SI or HI. Denied symptoms consistent with psychosis Sleep and Appetite: Fine. Interim History: Behavioral Changes: PRN meds/isolation/restraints/ change in status: None Change in medical condition: No change. Change in medications: No change. Side effects from Medications: None. Objective- MSE: Alert and attentive. Orientation times three. Dressed and Groomed: Appropriately. Pleasant and cooperative. Psychomotor Activity: Normal. Speech: Normal in tone, quality, and quantity. Mood: I feel great. Affect: Appropriate to mood. SI or HI: None. Perceptual disturbance: None. Thought Content: Exhibits paranoid and grandiose delusions. No other delusional thinking noted. Thought Process: Normal. Cognition: Intact Judgment and Insight: Poor AIMS: Normal. Labs: No new labs. Diagnosis: No changes. Plan and recommendation: Monitor MS. Adjust prn medications according to changes in MS and side effects of medications. Provide supportive psychotherapy. The patient provided psychoeducation. The patient provided Substance abuse counseling. Smoke cessation therapy. The patient to continue attending the canela activities. Medication Consent with explanation of risk/benefits and side effects: Explained and obtained.
--- NOTE | 2024-01-13 22:13 | P.PN ---
Progress Note - Text Progress Note Date: 01/13/24 In-Patient Follow-up Chief Complaint: I am doing fine Subjective: The patient noted that he has been doing. He had no complaints. The patient reiterated that he does not want to take medications because he has experienced bad side effect from medications. He indicated that he was brought to the hospital by police because his friend alleged that he was acting rowdy and filled the petition. He stated that she high on drugs. The patient stated that he does do any drugs except weed. He held a meaningful conversation without spontaneously exhibiting any delusional matter. The patient has been compliant with treatment except declining to take medications. His interaction with peers and staff is fine. Leading questions: The patient denied Depression and Anxiety. Denied SI or HI. Denied symptoms consistent with psychosis Sleep and Appetite: Fine. Interim History: Behavioral Changes: PRN meds/isolation/restraints/ change in status: None. Change in medical condition: No change. Change in medications: No change. Side effects from Medications: None. Objective- MSE: Alert and attentive. Orientation times three. Dressed and Groomed: Appropriately. Pleasant and cooperative. Psychomotor Activity: Normal. Speech: Normal in tone, quality, and quantity. Mood: Good. Affect: Appropriate to the mood. SI or HI: None. Perceptual disturbance: No hallucinatory behavior noted. Thought Content: No overt paranoia or other delusional thinking noted. Thought Process: Normal. Cognition: Intact Judgment and Insight: Operation judgment fine. Insight in to illness poor. AIMS: Normal. Labs: Reviewed. Diagnosis: No change. Plan and recommendation: Continue current Medications. Monitor MS and side effects of medications and adjust medications accordingly. Provide supportive psychotherapy. The patient provided psychoeducation. The patient provided Substance abuse counseling. The patient to continue attending the canela activities. Medication Consent with explanation of risk/benefits and side effects: Explained and obtained
--- NOTE | 2024-01-14 16:02 | P.PN ---
Progress Note - Text Progress Note Date: 01/14/24 In-Patient Follow-up Chief Complaint: I am doing fine Subjective: The patient had no specific complaints. He noted doing fine. The patient has been compliant with treatment recommendations except taking his medication. As per staff report that patient decompensates easily. He has had several admissions to this hospital. The initial presentation of flagrant psychosis could have been due to heavy use of marijuana induces psychosis also unmasking of underling pathology. The patient urine drug screening was only positive to Marijuana. He has not been showing any psychotic symptoms. His interaction with peers and staff is fine. Leading questions: The patient denied Depression and Anxiety. Denied SI or HI. Denied symptoms consistent with psychosis Sleep and Appetite: Fine. Interim History: Behavioral Changes: PRN meds/isolation/restraints/ change in status: None. Change in medical condition: No change. Change in medications: No change. Side effects from Medications: None. Objective- MSE: Alert and attentive. Orientation times three. Dressed and Groomed: Appropriately. Pleasant and cooperative. Psychomotor Activity: Normal. Speech: Normal in tone, quality, and quantity. Mood: Good. Affect: Appropriate to the mood. SI or HI: None. Perceptual disturbance: No hallucinatory behavior noted. Thought Content: No overt paranoia or other delusional thinking noted. Thought Process: Normal. Cognition: Intact Judgment and Insight: Operation judgment fine. Insight in to illness poor. AIMS: Normal. Lab: no New labs. Diagnosis: No change. Plan and recommendation: Continue current Medications. Monitor MS and side effects of medications and adjust medications accordingly. Provide supportive psychotherapy. The patient provided psychoeducation. The patient provided Substance abuse counseling. The patient to continue attending the canela activities. Medication Consent with explanation of risk/benefits and side effects: Explained and obtained.
[2024-01-15 06:31] VITALS: BP 127/73; PULSE 65; RESP 16; TEMP 98.1
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
== END 2024-01-15 14:13 | disposition home or self-care (01) | DRG 750 ==
LOC: EC 08:22 → 3MHU 13:42
PROVIDERS: ADMIT Psychiatry & Neurology Psychiatry; ATTEND Psychiatry & Neurology Psychiatry
DX: F25.0 Schizoaffective disorder, bipolar type (principal); F12.159 Cannabis abuse with psychotic disorder, unspecified; E03.9 Hypothyroidism, unspecified; G40.909 Epilepsy, unspecified, not intractable, without status epilepticus; K59.00 Constipation, unspecified; Z87.891 Personal history of nicotine dependence; Z88.6 Allergy status to analgesic agent; Z88.8 Allergy status to other drugs, medicaments and biological substances; F41.9 Anxiety disorder, unspecified; Z59.00 Homelessness unspecified
CPT/HCPCS: 80053; 80306; 81003; 82075; 83036; 84443; 85025; 87636; 99285

== ENCOUNTER 2024-04-09 08:40 | Emergency (ER) | payer OTHER | END 2024-04-09 18:00 | disposition home or self-care (01) | LOC: EC 08:40 | DX: F32.A Depression, unspecified (principal) | CPT/HCPCS: 99282 ==

== ENCOUNTER 2024-05-06 16:55 | Emergency (ER) | payer OTHER ==
--- NOTE | 2024-05-06 17:07 | ED ---
Psych HPI - General Source: patient, police, RN notes reviewed Mode of arrival: ambulatory <Boogie Vazquez - Last Filed: 05/06/24 17:06> - General Source: patient, police, RN notes reviewed, old records reviewed Mode of arrival: ambulatory Limitations: no limitations - History of Present Illness MD Complaint: altered mental status (Interval response) -: hour(s) Associated Psychiatric Symptoms: none, depression, suicidal ideation History of same: Yes Quality: constant Improves With: none Worsens With: none Treatments Prior to Arrival: placed on mental health hold If Self Harm: admits thoughts of self harm <Joshua Jimenez - Last Filed: 05/21/24 17:39> - General Chief Complaint: Psychiatric Symptoms Stated Complaint: Public Health Informatician Order Time Seen by Provider: 05/06/24 17:06 - History of Present Illness Initial Comments: Quick note: 38-year-old male escorted by police presented the ER for mental health evaluation. Patient has been petitioned by a director of assessment as he states "he missed an appointment". He denies any current SI, HI, drug or alcohol use today. No other complaints. (Boogie Vazquez) This is a 38-year-old male presents today for mental health evaluation he is under petition by the court (Joshua Jimenez) - Related Data Home Medications Medication Instructions Recorded Confirmed No Known Home Medications 01/08/24 05/06/24 Allergies Allergy/AdvReac Type Severity Reaction Status Date / Time aripiprazole [From Abilify] Allergy Rash/Hives Verified 05/06/24 18:12 ibuprofen Allergy Rash/Hives Verified 05/06/24 18:12 pseudoephedrine Allergy Rash/Hives Verified 05/06/24 18:12 [From Sudafed] alprazolam [From Xanax] AdvReac Confusion Verified 05/06/24 18:12 clonazepam [From Klonopin] AdvReac shaking Verified 05/06/24 18:12 escitalopram AdvReac seizures,insomnia, Verified 05/06/24 18:12 hallucinations Review of Systems ROS Other: All systems not noted in ROS Statement are negative. <Boogie Vazquez - Last Filed: 05/06/24 17:06> ROS Other: All systems not noted in ROS Statement are negative. <Joshua Jimenez - Last Filed: 05/21/24 17:39> ROS Statement: Those systems with pertinent positive or pertinent negative responses have been documented in the HPI. Past Medical History Past Medical History: Seizure Disorder Additional Past Medical History / Comment(s): seizures from medication- patient reported this as last admission, he now states that he went to the ER to be evaluated for this and he told him he had no signs of seizures. He states that after getting a mental health medication while leaving senior care he was in a 16 day seizure. 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 History of Any Multi-Drug Resistant Organisms: None Reported Past Surgical History: No Surgical Hx Reported Additional Past Surgical History / Comment(s): surgery when he was 4 years old removall of knee cap cyst Past Anesthesia/Blood Transfusion Reactions: Unable to Obtain Past Psychological History: Anxiety, Depression Smoking Status: Former smoker Past Alcohol Use History: Occasional Past Drug Use History: Cocaine, Marijuana - Past Family History Father Additional Family Medical History / Comment(s): Valvular heart disease, diabetes mellitus type 2, and neuropathy Mother Additional Family Medical History / Comment(s): colon cancer <Boogie Vazquez - Last Filed: 05/06/24 17:06> General Exam Limitations: no limitations <Boogie Vazquez - Last Filed: 05/06/24 17:06> General appearance: alert, in no apparent distress Head exam: Present: atraumatic, normocephalic, normal inspection Eye exam: Present: normal appearance, PERRL, EOMI. Absent: scleral icterus, conjunctival injection, periorbital swelling ENT exam: Present: normal exam, mucous membranes moist Neck exam: Present: normal inspection. Absent: tenderness, meningismus, lymphadenopathy Respiratory exam: Present: normal lung sounds bilaterally. Absent: respiratory distress, wheezes, rales, rhonchi, stridor Cardiovascular Exam: Present: regular rate, normal rhythm, normal heart sounds. Absent: systolic murmur, diastolic murmur, rubs, gallop, clicks GI/Abdominal exam: Present: soft, normal bowel sounds. Absent: distended, tenderness, guarding, rebound, rigid Extremities exam: Present: normal inspection, full ROM, normal capillary refill. Absent: tenderness, pedal edema, joint swelling, calf tenderness Back exam: Present: normal inspection Neurological exam: Present: alert, oriented X3, CN II-XII intact Psychiatric exam: Present: normal affect, normal mood Skin exam: Present: warm, dry, intact, normal color. Absent: rash <Joshua Jimenez - Last Filed: 05/21/24 17:39> - General Exam Comments Initial Comments: Visual Physical Exam Vital signs reviewed General: Well-appearing, nontoxic, no acute distress. Head: Normocephalic, atraumatic Eyes: PERRLA, EOMI ENT: Airway patent Chest: Nonlabored breathing Skin: No visual rash, normal skin tone Neuro: Alert and oriented 3 Musculoskeletal: No gross abnormalities (Boogie Vazquez) Course <Joshua Jimenez - Last Filed: 05/21/24 17:39> Vital Signs 05/06/24 05/06/24 16:58 20:30 Temperature 98 F 98.7 F Pulse Rate 99 79 Respiratory 16 17 Rate Blood Pressure 132/83 124/84 O2 Sat by Pulse 98 99 Oximetry - Reevaluation(s) Reevaluation #1: 05/06/24 18:43 Records reviewed (Joshua Jimenez) Reevaluation #2: 05/06/24 18:43 Symptoms unchanged (Joshua Jimenez) Reevaluation #3: 05/06/24 18:43 Patient is medically cleared for psychiatric evaluation (Joshua Jimenez) Reevaluation #5: MDM differential Mental Health Depression, anxiety, bipolar, psychosis, schizophrenia, borderline personality, situational depression, adjustment disorder, behavioral disorder, brain tumor, malingering, substance abuse, encephalopathy, medication reaction, dementia, hypothyroidism, degenerative neurologic disorder, lupus.... This is not meant to be all-inclusive list (Joshua Jimenez) Medical Decision Making <Boogie Vazquez - Last Filed: 05/06/24 17:06> - Medical Decision Making I performed the quick note portion of this chart. Electronically signed by Boogie Vazquez PA-C (Boogie Vazquez) Disposition <Boogie Vazquez - Last Filed: 05/06/24 17:06> Is patient prescribed a controlled substance at d/c from ED?: No Time of Disposition: 20:00 <Johsua Jimenez - Last Filed: 05/21/24 17:39> Clinical Impression: Depression, Psychosis, Schizoaffective disorder, bipolar type Disposition: HOME SELF-CARE Condition: Good Instructions (If sedation given, give patient instructions): Mood Disorders (ED) Referrals: None,Stated [Primary Care Provider] - 1-2 days
[2024-05-06 20:40] VITALS: BP 124/84; PULSE 79; RESP 17; TEMP 98.7
== END 2024-05-06 20:41 | disposition home or self-care (01) ==
LOC: EC 16:55
DX: F25.0 Schizoaffective disorder, bipolar type (principal); F12.90 Cannabis use, unspecified, uncomplicated; F29 Unspecified psychosis not due to a substance or known physiological condition; F31.9 Bipolar disorder, unspecified; Z88.6 Allergy status to analgesic agent; Z88.8 Allergy status to other drugs, medicaments and biological substances; Z87.891 Personal history of nicotine dependence
CPT/HCPCS: 82075; 99285

== ENCOUNTER 2024-08-06 13:06 | Emergency (ER) | payer OTHER ==
[2024-08-06 13:12] VITALS: RESP 18; TEMP 97.4
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
--- NOTE | 2024-08-06 14:22 | XR ---
EXAMINATION TYPE: XR ankle complete LT, XR foot complete LT DATE OF EXAM: 08/06/2024 1:35 PM COMPARISON: None CLINICAL INDICATION: Male, 38 years old with history of pain, pain TECHNIQUE: XR ankle complete LT, XR foot complete LT; ankle is imaged in frontal, lateral and obliqu e projections. FINDINGS: There is no evidence of acute osseous pathology. No evidence of subluxation or dislocation. Kager's fat pad is intact. Soft tissues are within normal limits. No radiopaque foreign bodies are identified . No evidence of osseous erosion to suggest osteomyelitis. Moderate degeneration changes of the first digit metatarsophalangeal joint. IMPRESSION: 1. No evidence of acute fracture. 2. Moderate first digit degeneration changes. Involving the metatarsophalangeal joint. [facility], , 08/06/2024 2:20 PM
[2024-08-06 14:57] VITALS: BP 136/78; PULSE 78
== END 2024-08-06 15:08 | disposition home or self-care (01) ==
LOC: EC 13:06
DX: M19.072 Primary osteoarthritis, left ankle and foot (principal); Z88.8 Allergy status to other drugs, medicaments and biological substances; Z87.891 Personal history of nicotine dependence
CPT/HCPCS: 99283

== ENCOUNTER 2025-02-27 15:29 | Emergency (ER) | payer OTHER ==
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
--- NOTE | 2025-02-27 16:52 | XR ---
EXAMINATION TYPE: XR foot complete LT DATE OF EXAM: 02/27/2025 4:39 PM CLINICAL INDICATION:Male, 39 years old with history of left great toe pain; PHH, pain COMPARISON: Left foot radiograph 08/06/2024 TECHNIQUE: XR foot complete LT examined in the AP, oblique, and lateral projections. FINDINGS: No evidence of any acute osseous pathology. No evidence of significant soft tissue swelling. No radi opaque foreign body. IMPRESSION: No acute osseous abnormality. [facility], , 02/27/2025 4:49 PM
[2025-02-27 16:53] LABS: Barbiturate Screen,Urine Not Detected (NotDetected); Benzodiazepines Screen,Urine Not Detected (NotDetected); Opiate Screen,Urine Not Detected (NotDetected); Oxycodone Screen, Urine Not Detected (NotDetected); Phencyclidine Screen,Urine Not Detected (NotDetected); Tricyclic Antidepressant,Urine Not Detected (NotDetected); Urn Cannabinoid Scrn Detected (NotDetected)
[2025-02-27 18:29] VITALS: BP 136/76; PULSE 86; RESP 20; TEMP 98
== END 2025-02-27 18:30 | disposition home or self-care (01) ==
LOC: EC 15:29
DX: M10.072 Idiopathic gout, left ankle and foot (principal); Z87.891 Personal history of nicotine dependence; Z88.8 Allergy status to other drugs, medicaments and biological substances
CPT/HCPCS: 80306; 99283